=== PATIENT | female | born 1995 | race Caucasian/White ===

== ENCOUNTER 2024-03-26 10:50 | Observation (INO) | payer OTHER, SELFPAY ==
[2024-03-26] VITALS (12 sets, daily range): BP systolic 111–148; BP diastolic 60–97; PULSE 115–137; RESP 14–25; TEMP 36.5–37.5; O2SAT 97–100; BMI 38.0; BMI 41.5
--- NOTE | ~2024-03-26 | XR_ITS ---
EXAMINATION: XR chest 2V DATE: 03/26/2024 12:58 INDICATION: Cough and tachycardia during second trimester TECHNIQUE: PA and lateral views of the chest were obtained. COMPARISON: None FINDINGS: Consolidation at the anterior segment of the left upper lobe consistent with pneumonia. Additional mo re subtle opacities in the bilateral lower lobes. No pleural effusion or pneumothorax. The cardiomedi astinal silhouette is normal. Mild lower thoracic levocurvature with minimal spondylosis. IMPRESSION: 1. Left upper lobe pneumonia with possible additional early pneumonia in the bilateral lower lobes. Reviewed, dictated and finalized at location A. NCER SCALE IMPRESSION: 1. Left upper lobe pneumonia with possible additional early pneumonia in the bi lateral lower lobes.
--- NOTE | ~2024-03-26 | US_ITS ---
EXAMINATION: US venous doppler [facility] DATE: 03/26/2024 12:55 INDICATION: Transient left lower limb pain and swelling TECHNIQUE: Grayscale ultrasound images without and with compression and Doppler ultrasound images of the left lower extremity veins were obtained. COMPARISON: None. FINDINGS: The visualized portions of left common femoral vein, profunda (deep) femoral vein, femoral vein, popl iteal vein, peroneal veins, posterior tibial veins, gastrocnemius vein and greater saphenous vein out flow are patent. IMPRESSION: 1. No deep venous thrombosis in the left lower limb. Reviewed, dictated and finalized at location A. NTIFIC ADVISOR
--- NOTE | 2024-03-26 10:57 | ECG_ITS ---
Test Date: 2024-03-26 11:06:29 Measurements Intervals [place] Rate: 124 P: 31 MT: 137 QRS: 18 QRSD: 75 T: 14 QT: 282 QTc: 406 Interpretive Statements SINUS TACHYCARDIA EARLY PRECORDIAL R/S TRANSITION BORDERLINE T WAVE ABNORMALITY- INFERIOR LEADS ABNORMAL ECG No previous ECG available for comparison Electronically Signed On 03-27-2024 10:07:04 AIR TRAFF[employer] SYSTEMS TECHNICIAN by Kit Suárez D.O.
--- NOTE | 2024-03-26 11:32 | ED_ITS ---
HPI - Arrhythmia/Palpitations General Chief Complaint: Arrhythmia/Palpitations Stated Complaint: 23 weeks preg w twins, cough, elevated HR Time Seen by Provider: 03/26/24 11:08 History of Present Illness HPI narrative: 28-year-old female at 23 weeks gestation with twins presenting with cough and tachycardia. States that she developed cold-like symptoms about a day ago. She has been taking Mucinex to help break up her cough. States that she has had mild exertional dyspnea since getting and this is unchanged. She denies any chest pain. States that she has had some transient lower extremity swelling, worse on the left. States that she notices it at night after working all day. The swelling goes down after she rests. She noticed her heart rate was around 140 today on her watch so she called her OB who told her to come in for evaluation. No abdominal pain, vaginal bleeding or discharge, dysuria. Related Data Home Medications Medication Instructions Recorded Confirmed calcium carbonate 1,250 mg PO BID PRN Acid Reflux 03/26/24 03/26/24 vits 75-iron 28 mg-folic 1 pkg PO DAILY 03/26/24 03/26/24 acid 800 mcg-omega3 440 mg oral pack pseudoephedrine-guaifenesin ER 60 1 tablet PO BID 03/26/24 03/26/24 mg-600 mg tablet,extend release 12hr (Mucinex D) Allergies Allergy/AdvReac Type Severity Reaction Status Date / Time No Known Allergies Allergy Verified 03/26/24 10:51 Review of Systems Review of Systems: All systems reviewed & are unremarkable except as noted in HPI and below PMFSH Past Medical History Medical History Tachycardia Surgical History Surgical History History of hip surgery right hip surgery for labral tear History of placement of ear tubes History of tonsillectomy Family History Family History Other Family history non-contributory Social History Social History Social History: Surrogate medical decision maker: Justen Shanks ([phone]), spouse. Code status: Full code. Smoking status: Never smoker Alcohol intake: never Substance use: never Substance use type: does not use Do You Feel Safe in your Home?: Yes Lack of Transportation: No Lack of Food: Never True Current Housing: I Have Housing Concerned About Future Housing: No Difficulty Paying Gas/Electric Bills: No Difficulty Paying for Meds: No Currently Unemployed: No Education: Bachelor's Degree Difficulty w/ Childcare or Family Care: No Additional living arrangements comments: Lives with spouse in [place]. Additional occupation/education comments: [employer]. Spiritual care concerns: No Exam Narrative: GENERAL: Well-appearing, in no acute distress, pleasant cooperative HEAD: Normocephalic, atraumatic. EYES: PERRLA and EOMI. ENT: Mucous membranes moist. NECK: Supple. CHEST: Clear to auscultation. No respiratory distress. Intermittent cough HEART: Tachycardic, regular rhythm ABDOMEN: Soft, nontender, appropriately gravid EXTREMITIES: Normal range of motion. No edema. SKIN: Warm, dry, no rash. NEURO: No focal deficits. Alert and oriented x3. PSYCH: Normal mood and affect. Course Vital Signs Vital signs: Vital Signs Temperature 97.7 F 03/26/24 10:53 Pulse Rate 137 H 03/26/24 10:53 Respiratory Rate 14 03/26/24 10:53 Blood Pressure 137/90 03/26/24 10:53 Pulse Oximetry 99 03/26/24 10:53 Oxygen Delivery Room Air 03/26/24 10:53 Temperature 98.2 F 03/27/24 14:00 Pulse Rate 111 H 03/27/24 14:00 Respiratory Rate 17 03/27/24 14:00 Blood Pressure 125/71 03/27/24 14:00 Pulse Oximetry 96 03/27/24 14:00 Oxygen Delivery Room Air 03/27/24 09:03 Fraction of Inspired Oxygen 21 03/27/24 09:03 MDM - Arrhythmia/Palpitations MDM Narrative Medical decision making narrative: 28-year-old female presenting with cough, high heart rate. Patient is tachycardic in the 120s to 130s on arrival. Vitals are otherwise within normal limits. UA is contaminated. Negative for COVID. Chest x-ray with bilateral pneumonia. IV Rocephin and azithromycin given ordered. Patient is still a bit tachycardic, will give 1 more L of fluids. If she remains tachycardic, will admit her for IV hydration and antibiotics. Ultrasound of the left leg shows no DVT. Patient continues to be tachycardic up to the mid 120s despite 3 L of fluids. Feel she would benefit from admission for further IV hydration and IV a ntibiotics. Blood cultures have been added. Bedside ultrasound confirms positive cardiac activity in both fetuses with positive movement. I spoke with Dr. Ferrari who agrees with admission. Requests medicine consult for IV antibiotic and fluid management. Dr. Grajeda will see her tomorrow. Patient is agreeable this plan. Differential Diagnosis Differential diagnosis: Likely palpitations, sinus tachycardia and other (Pneumonia, UTI, dehydration, ) Medical Records Attestation: I reviewed the patient's medical records. Lab Data Attestation: I reviewed the patient's lab results. 03/26/24 11:43 03/27/24 06:23 Labs: Lab Results 03/26/24 03/26/24 Range/Units 11:43 13:46 WBC 6.9 (4.5-10.0) K/mm3 RBC 3.58 L (4.2-5.4) M/mm3 Hgb 10.9 L (12.0-15.0) g/dL Hct 32.3 L (37.0-47.0) % MCV 90.2 (80-100) fl MCH 30.4 (26-34) pg MCHC 33.7 (32-36) g/dl RDW 13.2 (11.5-14.5) % Plt Count 228 (150-375) k/mm3 MPV 10.3 (7.4-10.4) fl Immature Gran % (Auto) 1.2 H (0-0.5) % Neut % (Auto) 71.1 (45.5-73.1) % Lymph % (Auto) 17.7 L (18.3-44.2) % [place] % (Auto) 9.0 H (2.6-8.5) % Eos % (Auto) 0.7 (0-4.4) % Baso % (Auto) 0.3 (0.2-1.2) % Lymph # (Auto) 1.22 (0.9-3.2) K/mm3 [place] # (Auto) 0.6 (0.1-0.6) K/mm3 Eos # (Auto) 0.1 (0-0.3) K/mm3 Baso # (Auto) 0.0 (0.0-0.1) K/mm3 Abs Immat Gran (auto) 0.08 H (0.00-0.031) K/mm3 Absolute Neuts (auto) 4.9 (1.3-6.7) K/mm3 Absolute Nucleated RBC 0.000 (0.0-0.012) K/mm3 Nucleated RBC % 0.0 (0.0-0.2) % Sodium 135 L (137-145) mmol/L Potassium 4.0 (3.4-5.0) mmol/L Chloride 106 (98-107) mmol/L Carbon Dioxide 24 (22-30) mmol/L Anion Gap 5 (4-12) mmol/L BUN 3 L (7-17) mg/dL Creatinine 0.50 L (0.7-1.0) mg/dL Estim Creat Clear Calc 177 ml/min Estimated GFR > 60 (59 - ) Glucose 77 (65-110) mg/dL Lactic Acid 0.8 (0.7-2.0) mmol/L Calcium 9.0 (8.4-10.2) mg/dL Magnesium 1.9 (1.6-2.3) mg/dL Total Bilirubin 0.8 (0.2-1.3) mg/dL AST 33 (14-36) U/L ALT 29 (6-35) U/L Alkaline Phosphatase 107 (38-126) U/L Total Protein 7.0 (6.3-8.2) g/dL Albumin 3.7 (3.5-5.1) g/dL Urine Color Yellow (Yellow) Urine Appearance Clear (Clear) Urine pH 7.5 (5.0-9.0) Ur Specific [place] 1.014 (1.001-1.035) Urine Protein Trace (Negative) mg/dL Urine Glucose (UA) 1+ H (Negative) mg/dL Urine Ketones Trace H (Negative) mg/dL Ur Blood (Man) Negative (Negative) Urine Nitrate Negative (Negative) Urine Bilirubin Negative (Negative) Urine Urobilinogen 1.0 (<2.0) mg/dL Leukocyte Esterase Rfl Trace H (Negative) AYE/UL Urine RBC 0-2 (0-2) /hpf Urine WBC 6-10 H (0-3) /hpf Ur Squamous Epith Cells Occasional (Few) /hpf Urine Bacteria 1+ H /hpf Urine Casts 0-2 Influenza A (RT-PCR) Negative (Negative) Influenza B (RT-PCR) Negative (Negative) RSV (RT-PCR) Negative (Negative) SARS-CoV-2 RNA (RT-PCR) Negative (Negative) Imaging Data Radiologist's impression: ITS Impressions Venous Doppler Study 03/26/24 12:57 IMPRESSION: 1. No deep venous thrombosis in the left lower limb. Chest X-Ray 03/26/24 13:03 IMPRESSION: 1. Left upper lobe pneumonia with possible additional early pneumonia in the bilateral lower lobes. Critical Care Time Critical Care Time Critical Care Time: Yes Total Critical Care Time: 33 Discharge Plan Discharge Clinical Impression: Bilateral pneumonia, Second trimester Patient Disposition: Still a Patient Condition: Stable
[2024-03-26 11:50] LABS: Basophils Percent Auto 0.3 % (0.2-1.2); Eosinophils Absolute Auto 0.1 K/mm3 (0-0.3); Eosinophils Percent Auto 0.7 % (0-4.4); Hematocrit 32.3 % (37.0-47.0); Hemoglobin 10.9 g/dL (12.0-15.0); Immature Granulocyte Absolute 0.08 K/mm3 (0.00-0.031); Immature Granulocyte Percent A 1.2 % (0-0.5); Lymphocytes Absolute Auto 1.22 K/mm3 (0.9-3.2); Lymphocytes Percent Auto 17.7 % (18.3-44.2); Mean Corpuscular HGB Conc 33.7 g/dl (32-36); Mean Corpuscular Hemoglobin 30.4 pg (26-34); Mean Corpuscular Volume 90.2 fl (80-100); Mean Platelet Volume 10.3 fl (7.4-10.4); Monocytes Absolute Auto 0.6 K/mm3 (0.1-0.6); Neutrophils Absolute Auto 4.9 K/mm3 (1.3-6.7); Neutrophils Percent Auto 71.1 % (45.5-73.1); Platelet Count Result 228 k/mm3 (150-375); Red Blood Count 3.58 M/mm3 (4.2-5.4); Red Cell Distribution Width 13.2 % (11.5-14.5); White Blood Count 6.9 K/mm3 (4.5-10.0)
[2024-03-26 11:56] LABS: Add Urine Microscopic? YES; Appearance Urine Clear (Clear); Bacteria Urine 1+ /hpf; Bilirubin Urine Negative (Negative); Blood Urine Negative (Negative); Color Urine Yellow (Yellow); Glucose Urine UA 1+ mg/dL (Negative); Ketones Urine Trace mg/dL (Negative); Leukocyte Esterase Ur Trace LEU/UL (Negative); Nitrate Urine Negative (Negative); Non Pathogenic Casts 0-2; Protein Urine Trace mg/dL (Negative); RBC Urine 0-2 /hpf (0-2); Specific Grav Ur 1.014 (1.001-1.035); Squamous Epithelial Cell Urine Occasional /hpf (Few); pH Urine 7.5 (5.0-9.0)
[2024-03-26 11:59] LABS: Alanine Aminotransferase 29 U/L (6-35); Albumin Level 3.7 g/dL (3.5-5.1); Alkaline Phosphatase 107 U/L (38-126); Anion Gap 5 mmol/L (4-12); Aspartate Amino Transferase 33 U/L (14-36); Bilirubin,Total 0.8 mg/dL (0.2-1.3); Blood Urea Nitrogen 3 mg/dL (7-17); Carbon Dioxide 24 mmol/L (22-30); Chloride 106 mmol/L (98-107); Estimated CRCL calculation 177 ml/min; Estimated Glomerular Filt Rate > 60; Glucose 77 mg/dL (65-110); Magnesium 1.9 mg/dL (1.6-2.3); Sodium 135 mmol/L (137-145)
[2024-03-26] MEDS: SODIUM CHLORIDE 0.9% IV 1,000 ML 999 ML IV CONT ×3 (12:08→13:53)
[2024-03-26 12:26] LABS: Influenza A QL RT-PCR Negative (Negative); Influenza B QL RT-PCR Negative (Negative); RSV RNA, RT-PCR Negative (Negative); SARS-CoV-2 RNA PCR Negative (Negative)
--- NOTE | 2024-03-26 12:27 | PC.NURSE ---
This RN attempted to assess FHR with Doppler. Pt. is with twins. 2x FHR found in 2 separate locations. Doppler would not populate BPM. Pt. states at her OB visits they usually have difficulty with the Doppler and require an ultrasound. Pt. requesting twins be looked at via ultrasound by . Md Casper notified.
--- NOTE | 2024-03-26 12:54 | PC.NURSE ---
Pt. to x-ray. Will start 2nd bag of fluids when pt. returns.
[2024-03-26] MEDS: cefTRIAXone 2 GM/NS 100 ML 2 GM/100 ML BAG IVPB (13:53)
[2024-03-26 14:01] LABS: Lactic Acid Reflex 0.8 mmol/L (0.7-2.0)
--- NOTE | 2024-03-26 15:00 | PC.NURSE ---
MD Casper at bedside completing ultrasound
[2024-03-26] MEDS: AZITHROMYCIN 500 MG/NS 250 ML 500 MG/250 ML BAG 250 MG IVPB (15:06)
--- NOTE | 2024-03-26 16:15 | P.HP_ITS ---
H&P: HPI History of Present Illness Date/Time: 03/26/24 16:15 Chief Complaint: Fast heart rate. Meds Home Medications and Allergies Allergies Allergy/AdvReac Type Severity Reaction Status Date / Time No Known Allergies Allergy Verified 03/26/24 10:51 Vital Signs Vital Signs - 24 hr 03/26/24 10:53 03/26/24 11:15 03/26/24 12:31 Temperature 97.7 F Pulse Rate 137 H 124 H 115 H Respiratory Rate 14 16 24 H Blood Pressure 137/90 120/82 123/85 Pulse Oximetry 99 97 100 Oxygen Delivery Room Air 03/26/24 13:54 03/26/24 15:09 03/26/24 13:36 Temperature Pulse Rate 116 H 121 H 119 H Respiratory Rate 16 18 22 H Blood Pressure 116/85 132/90 116/85 Pulse Oximetry 100 100 100 Oxygen Delivery 03/26/24 15:00 03/26/24 15:42 03/26/24 16:01 Temperature Pulse Rate 124 H 125 H 126 H Respiratory Rate 23 H 18 25 H Blood Pressure 148/97 H Pulse Oximetry 100 100 100 Oxygen Delivery H&P: Results Labs Labs: Short CBC 03/26/24 Range/Units 11:43 WBC 6.9 (4.5-10.0) K/mm3 Hgb 10.9 L (12.0-15.0) g/dL Hct 32.3 L (37.0-47.0) % Plt Count 228 (150-375) k/mm3 BMP 03/26/24 11:43 Sodium 135 L Potassium 4.0 Chloride 106 Carbon Dioxide 24 BUN 3 L Creatinine 0.50 L Glucose 77 Calcium 9.0 Liver Function 03/26/24 Range/Units 11:43 Total Bilirubin 0.8 (0.2-1.3) mg/dL AST 33 (14-36) U/L ALT 29 (6-35) U/L Alkaline Phosphatase 107 (38-126) U/L Albumin 3.7 (3.5-5.1) g/dL Urine 03/26/24 Range/Units 11:43 Urine Color Yellow (Yellow) Urine Appearance Clear (Clear) Urine pH 7.5 (5.0-9.0) Ur Specific [place] 1.014 (1.001-1.035) Urine Protein Trace (Negative) mg/dL Urine Glucose (UA) 1+ H (Negative) mg/dL
--- NOTE | 2024-03-26 16:18 | P.CONIM_ITS ---
Assessment and Plan Assessment and plan (1) Community acquired pneumonia: Code(s): J18.9 - Pneumonia, unspecified organism Status: Acute (2) Tachycardia: Code(s): R00.0 - Tachycardia, unspecified Status: Acute (3) Second trimester : Code(s): Z34.92 - Encounter for supervision of normal , unspecified, second trimester Status: Acute Plan The patient presented to the emergency department for evaluation of cough, congestion, and tachycardia as detailed in HPI. Labs, imaging, EKG, and all reports were personally reviewed. Chest x-ray shows findings of pneumonia for which she has been started on azithromycin and ceftriaxone. Attempt sputum for culture. Check Legionella pneumococcal antigens as well as mycoplasma IgA. Tachycardia is likely related to underlying infection and ; she also has a history of tachycardia. She received 2 L normal saline in the ED and we will hold on further fluids at this time. Check TSH. Her home medications will be reviewed and resumed as appropriate. Findings and treatment plan were discussed with the patient. Questions were solicited and answered to satisfaction. The patient's medical management will be taken over by the hospitalist team in a.m. Thank you for allowing us to participate in this patient's care. Please do not hesitate to contact us with any questions. [facility] Date of Consult Consult date: 03/26/24 Requesting Physician: Sachin Ferrari MD Primary Care Provider: [employer] OPERATOR PHYSICIAN Consult Narrative Narrative: This is a very pleasant 28-year-old female, reportedly at 23 weeks gestation with twins, whom the hospitalist service has been consulted after she was admitted with a community-acquired pneumonia. The patient provides the following history. She endorses congestion and cough productive of clear phlegm for the l ast couple of days. She has also felt a bit short of breath however has noticed that somewhat during her and that is unchanged. She has occasional lower extremity edema and is noticed that the left leg seems to swell a bit more than the right, but the swelling typically goes down overnight. Today her smart watch alerted that her pulse was 140, she called her OB and she was referred to the emergency department. With further questioning she does have a history of sinus tachycardia and was on atenolol for quite some time however has been off of that for years. Her heart rate has not been this high, however. She denies fever, chills, sweats, sinus congestion, sore throat, pleuritic pain, chest pain, calf pain, nausea, vomiting, diarrhea, and dysuria. In the ED: She was afebrile on arrival with stable blood pressures. Pulse was 137 on arrival and has been consistently in the low 120s. SpO2 is in the upper 90s to 100% on room air. Labs were significant for WBC count 6.9, hemoglobin 10.9, sodium 135, BUN 3, creatinine 0.50, lactic acid 0.8. She tested negative for influenza, RSV, and COVID. Chest x-ray showed left upper lobe pneumonia with possible additional early pneumonia in the bilateral lower lobes. Left lower extremity venous Doppler ultrasound was negative for DVT. She was given a dose of azithromycin and ceftriaxone and is being admitted in this setting. Review of Systems Review of Systems: 12 systems were reviewed and are negativ e except for as per HPI. [facility] Past Medical History Medical History (Updated 03/26/24 @ 20:06 by Allie Avila PA-C) Tachycardia Surgical History Surgical History (Updated 03/26/24 @ 20:02 by Allie Avila PA-C) History of hip surgery right hip surgery for labral tear History of placement of ear tubes History of tonsillectomy Family History Family History (Updated 03/26/24 @ 20:02 by Allie Avila PA-C) Other Family history non-contributory Social History Social History (Updated 03/26/24 @ 20:03 by Allie Avila PA-C) Social History: Surrogate medical decision maker: Justen Shanks ([phone]), spouse. Code status: Full code. Smoking status: Never smoker Alcohol intake: never Substance use: never Substance use type: does not use Do You Feel Safe in your Home?: Yes Lack of Transportation: No Lack of Food: Never True Current Housing: I Have Housing Concerned About Future Housing: No Difficulty Paying Gas/Electric Bills: No Difficulty Paying for Meds: No Currently Unemployed: No Education: Bachelor's Degree Difficulty w/ Childcare or Family Care: No Additional living arrangements comments: Lives with spouse in [place]. Additional occupation/education comments: [employer]. Spiritual care concerns: No Meds Home Medications and Allergies Home Medications Medication Instructions Recorded Confirmed Type calcium carbonate 1,250 mg PO BID PRN Acid Reflux 03/26/24 03/26/24 History vits 75-iron 28 mg-folic 1 pkg PO DAILY 03/26/24 03/26/24 History acid 800 mcg-omega3 440 mg oral pack pseudoephedrine-guaifenesin ER 60 1 tablet PO BID 03/26/24 03/26/24 History mg-600 mg tablet,extend release 12hr (Mucinex D) Allergies Allergy/AdvReac Type Severity Reaction Status Date / Time No Known Allergies Allergy Verified 03/26/24 10:51 Vital Signs Vital Signs - 24 hr 03/26/24 10:53 03/26/24 11:15 03/26/24 12:31 Temperature 97.7 F Pulse Rate 137 H 124 H 115 H Respiratory Rate 14 16 24 H Blood Pressure 137/90 120/82 123/85 Pulse Oximetry 99 97 100 Oxygen Delivery Room Air 03/26/24 13:54 03/26/24 15:09 03/26/24 13:36 Temperature Pulse Rate 116 H 121 H 119 H Respiratory Rate 16 18 22 H Blood Pressure 116/85 132/90 116/85 Pulse Oximetry 100 100 100 Oxygen Delivery 03/26/24 15:00 03/26/24 15:42 03/26/24 16:01 Temperature Pulse Rate 124 H 125 H 126 H Respiratory Rate 23 H 18 25 H Blood Pressure 148/97 H Pulse Oximetry 100 100 100 Oxygen Delivery Exam Narrative: General: Well-developed, nontoxic-appearing female sitting up in bed in no acute distress. Weight: 113.2 kg. BMI: 41.5. HEENT: PERRL, EOMI. Sclera anicteric. Oral mucosa moist. Oropharynx clear. Neck: Supple. No lymphadenopathy. Respiratory: Respirations are nonlabored and she is speaking in full sentences. Bronchial breath sounds in the left mid upper lobe. Cardiovascular: Tachycardic with normal S1-S2. No significant murmur. Gastrointestinal: Abdomen is gravid, soft, and nontender with positive bowel sounds. Skin: Warm and dry. No rash or lesions on limited exam. Extremities: No cyanosis or clubbing. Trace velasquez ankle edema bilaterally. Radial and pedal pulses intact. Neurological: Alert. Cranial nerves 2-12 are grossly intact. No gross focal deficits to casual conversation. Psychiatric: Pleasant and cooperative with normal mood and affect. Judgment and insight intact. Results Labs 03/26/24 11:43 03/26/24 11:43 Labs: Short CBC 03/26/24 Range/Units 11:43 WBC 6.9 (4.5-10.0) K/mm3 Hgb 10.9 L (12.0-15.0) g/dL Hct 32.3 L (37.0-47.0) % Plt Count 228 (150-375) k/mm3 BMP 03/26/24 11:43 Sodium 135 L Potassium 4.0 Chloride 106 Carbon Dioxide 24 BUN 3 L Creatinine 0.50 L Glucose 77 Calcium 9.0 Liver Function 03/26/24 Range/Units 11:43 Total Bilirubin 0.8 (0.2-1.3) mg/dL AST 33 (14-36) U/L ALT 29 (6-35) U/L Alkaline Phosphatase 107 (38-126) U/L Albumin 3.7 (3.5-5.1) g/dL Urine 03/26/24 Range/Units 11:43 Urine Color Yellow (Yellow) Urine Appearance Clear (Clear) Urine pH 7.5 (5.0-9.0) Ur Specific [place] 1.014 (1.001-1.035) Urine Protein Trace (Negative) mg/dL Urine Glucose (UA) 1+ H (Negative) mg/dL Impressions Venous Doppler Study 03/26/24 12:57 IMPRESSION: 1. No deep venous thrombosis in the left lower limb. Chest X-Ray 03/26/24 13:03 IMPRESSION: 1. Left upper lobe pneumonia with possible additional early pneumonia in the b ilateral lower lobes. Quality VTE Prophylaxis VTE prophylaxis: mechanical ordered Hospitalist [facility] Advance Care Plan I have confirmed that the patient's Advanced Care Plan is present, code status is documented, or surrogate decision maker is listed in patient medical record.: Yes Medication Reconciliation I have utilized all available resources to obtain, update and review the patients current medications (includes all prescriptions, OTC, herbals, cannabis, and nutritional supplements).: Yes
[2024-03-26 22:27] LABS: MRSA (PCR) NOT DETECTED (NOT DETECTE)
[2024-03-27 00:03] VITALS: PULSE 107
[2024-03-27 04:00] VITALS: PULSE 103
[2024-03-27 05:48] VITALS: BP 133/76; PULSE 105; RESP 14; TEMP 36.9; O2SAT 98
[2024-03-27 06:48] LABS: Anion Gap 6 mmol/L (4-12); Blood Urea Nitrogen 2 mg/dL (7-17); Calcium 8.5 mg/dL (8.4-10.2); Carbon Dioxide 20 mmol/L (22-30); Chloride 109 mmol/L (98-107); Estimated CRCL calculation 216 ml/min; Estimated Glomerular Filt Rate > 60; Glucose 91 mg/dL (65-110); Magnesium 1.7 mg/dL (1.6-2.3); Potassium 3.5 mmol/L (3.4-5.0); Sodium 135 mmol/L (137-145)
[2024-03-27 07:16] LABS: Thyroid Stimulating Hormone Reflex 0.788 uIU/mL (0.465-4.68)
[2024-03-27 08:00] VITALS: PULSE 105; PULSE 111; RESP 14; O2SAT 98
[2024-03-27 09:03] VITALS: O2SAT 98
[2024-03-27] MEDS: AZITHROMYCIN 250 MG TABLET PO (09:39)
--- NOTE | 2024-03-27 10:18 | PC.NURSE ---
1010 - This RN at bedside to dopple heart tones. Baby A FHTs doppled at 155. Baby B FHTs doppled at 145.
--- NOTE | 2024-03-27 10:34 | P.PNIM_ITS ---
Progress Note: A&P Assessment and Plan (1) Community acquired pneumonia: Code(s): J18.9 - Pneumonia, unspecified organism Status: Acute (2) Tachycardia: Code(s): R00.0 - Tachycardia, unspecified Status: Acute (3) Second trimester : Code(s): Z34.92 - Encounter for supervision of normal , unspecified, second trimester Status: Acute Plan The patient presented to the emergency department for evaluation of cough, congestion, and tachycardia as detailed in HPI. Labs, imaging, EKG, and all reports were personally reviewed. Chest x-ray shows findings of pneumonia for which she has been started on azithromycin and ceftriaxone. Attempt sputum for culture. Check Legionella pneumococcal antigens as well as mycoplasma IgA. Tachycardia is likely related to underlying infection and ; she also has a history of tachycardia. She received 2 L normal saline in the ED and we will hold on further fluids at this time. Check TSH. Her home medications will be reviewed and resumed as appropriate. Findings and treatment plan were discussed with the patient. Questions were solicited and answered to satisfaction. The patient's medical management will be taken over by the hospitalist team in a.m. Thank you for allowing us to participate in this patient's care. Please do not hesitate to contact us with any questions. 03/27: # PNA Community-acquired pneumonia Amox clavulanic acid for 7 days Reviewed vitals and labs Encourage oral intake Return to ED in the event of constitutional symptoms #Tachycardia Possibly secondary to TSH is normal Need cardiac evaluation possibly EP Need psychiatric evaluation to rule out anxiety Subjective Date/time seen: 03/27/24 10:34 Interval history: Patient was evaluated at bedside. Patient reports of having PMHx of tachycardia for which she seen the field examiner and and no official diagnosis was made or given pill in the pocket. Patient denies any sudden in the family. Patient also denies any sudden loss of consciousness during her physical activity. In regards to pneumonia patient can take amoxicillin for 7 days and return to ED if she experience any cough congestion fever, chills. 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 Review of Systems Review of Systems: 12 systems were reviewed and are negativ e except for as per HPI. Exam Narrative: General: Well-developed, nontoxic-appearing female sitting up in bed in no acute distress. Weight: 113.2 kg. BMI: 41.5. HEENT: PERRL, EOMI. Sclera anicteric. Oral mucosa moist. Oropharynx clear. Neck: Supple. No lymphadenopathy. Respiratory: Respirations are nonlabored and she is speaking in full sentences. Bronchial breath sounds in the left mid upper lobe. Cardiovascular: Tachycardic with normal S1-S2. No significant murmur. Gastrointestinal: Abdomen is gravid, soft, and nontender with positive bowel sounds. Skin: Warm and dry. No rash or lesions on limited exam. Extremities: No cyanosis or clubbing. Trace velasquez ankle edema bilaterally. Radial and pedal pulses intact. Neurological: Alert. Cranial nerves 2-12 are grossly intact. No gross focal deficits to casual conversation. Psychiatric: Pleasant and cooperative with normal mood and affect. Judgment and insight intact. Objective Data Vital Signs Vital Signs: Vital Signs - 24 hr 03/26/24 10:53 03/26/24 11:15 03/26/24 12:31 Temperature 97.7 F Pulse Rate 137 H 124 H 115 H Respiratory Rate 14 16 24 H Blood Pressure 137/90 120/82 123/85 Pulse Oximetry 99 97 100 Oxygen Delivery Room Air Fraction of Inspired Oxygen 03/26/24 13:54 03/26/24 15:09 03/26/24 13:36 Temperature Pulse Rate 116 H 121 H 119 H Respiratory Rate 16 18 22 H Blood Pressure 116/85 132/90 116/85 Pulse Oximetry 100 100 100 Oxygen Delivery Fraction of Inspired Oxygen 03/26/24 15:00 03/26/24 15:42 03/26/24 16:01 Temperature Pulse Rate 124 H 125 H 126 H Respiratory Rate 23 H 18 25 H Blood Pressure 148/97 H Pulse Oximetry 100 100 100 Oxygen Delivery Fraction of Inspired Oxygen 03/26/24 17:23 03/26/24 17:49 03/26/24 21:54 Temperature 99.5 F 99.5 F Pulse Rate 122 H 122 H Respiratory Rate 20 20 Blood Pressure 117/69 111/60 Pulse Oximetry 99 98 Oxygen Delivery Room Air Fraction of Inspired Oxygen 03/26/24 20:00 03/26/24 20:01 03/27/24 00:03 Temperature Pulse Rate 117 H 107 H Respiratory Rate Blood Pressure Pulse Oximetry Oxygen Delivery Room Air Fraction of Inspired Oxygen 03/27/24 04:00 03/27/24 05:48 03/27/24 09:03 Temperature 98.5 F Pulse Rate 103 H 105 H Respiratory Rate 14 Blood Pressure 133/76 Pulse Oximetry 98 98 Oxygen Delivery Room Air Fraction of Inspired Oxygen 21 Intake/Output Intake/Output: Intake & Output 03/24/24 03/25/24 03/26/24 03/27/24 23:59 23:59 23:59 23:59 Intake Total 3850 1290 Output Total 100 Balance 3750 1290 Meds/Results Medications: Active Medications Generic Name Dose Route Start Last Admin Trade Name Freq PRN Reason Stop Dose Admin Albuterol 2 puff 03/26/24 20:07 Albuterol Sulfate (*Sp) Aerosol 1 Puff INHALATION QIDRT PRN Shortness Of Breath Azithromycin 250 mg 03/27/24 09:00 03/27/24 09:39 Azithromycin 250 Mg Tablet PO 03/30/24 09:01 250 mg DAILY OLE Administration Calcium Carbonate 500 mg 03/26/24 20:11 Calcium Carbonate (Tums) 500 Mg (200 Mg Elemental) PO BID PRN Acid Reflux Ceftriaxone Sodium 1 gm in 50 mls @ 100 mls/hr 03/27/24 14:00 Rocephin 1 Gm/Ns 50 Ml IVPB Q24H [facility] Vit/Calcium/Iron/Folic Ac 1 tab 03/27/24 09:00 Multivit/Min/Pren/Fol Ac/Iron Tablet PO DAILY [facility] Radiology Results: ITS Impressions Venous Doppler Study 03/26/24 12:57 IMPRESSION: 1. No deep venous thrombosis in the left lower limb. Chest X-Ray 03/26/24 13:03 IMPRESSION: 1. Left upper lobe pneumonia with possible additional early pneumonia in the bilateral lower lobes. Labs Labs: Laboratory Results - last 24 hr 03/26/24 03/26/24 03/26/24 11:43 13:46 21:08 WBC 6.9 RBC 3.58 L Hgb 10.9 L Hct 32.3 L MCV 90.2 MCH 30.4 MCHC 33.7 RDW 13.2 Plt Count 228 MPV 10.3 Immature Gran % (Auto) 1.2 H Neut % (Auto) 71.1 Lymph % (Auto) 17.7 L [place] % (Auto) 9.0 H Eos % (Auto) 0.7 Baso % (Auto) 0.3 Lymph # (Auto) 1.22 [place] # (Auto) 0.6 Eos # (Auto) 0.1 Baso # (Auto) 0.0 Abs Immat Gran (auto) 0.08 H Absolute Neuts (auto) 4.9 Absolute Nucleated RBC 0.000 Nucleated RBC % 0.0 Sodium 135 L Potassium 4.0 Chloride 106 Carbon Dioxide 24 Anion Gap 5 BUN 3 L Creatinine 0.50 L Estim Creat Clear Calc 177 Estimated GFR > 60 Glucose 77 Lactic Acid 0.8 Calcium 9.0 Magnesium 1.9 Total Bilirubin 0.8 AST 33 ALT 29 Alkaline Phosphatase 107 Total Protein 7.0 Albumin 3.7 TSH (Reflex) Urine Color Yellow Urine Appearance Clear Urine pH 7.5 Ur Specific [place] 1.014 Urine Protein Trace Urine Glucose (UA) 1+ H Urine Ketones Trace H Ur Blood (Man) Negative Urine Nitrate Negative Urine Bilirubin Negative Urine Urobilinogen 1.0 Leukocyte Esterase Rfl Trace H Urine RBC 0-2 Urine WBC 6-10 H Ur Squamous Epith Cells Occasional Urine Bacteria 1+ H Urine Casts 0-2 Nasal MRSA (PCR) Not detected Influenza A (RT-PCR) Negative Influenza B (RT-PCR) Negative RSV (RT-PCR) Negative SARS-CoV-2 RNA (RT-PCR) Negative 03/27/24 06:23 WBC RBC Hgb Hct MCV MCH MCHC RDW Plt Count MPV Immature Gran % (Auto) Neut % (Auto) Lymph % (Auto) [place] % (Auto) Eos % (Auto) Baso % (Auto) Lymph # (Auto) [place] # (Auto) Eos # (Auto) Baso # (Auto) Abs Immat Gran (auto) Absolute Neuts (auto) Absolute Nucleated RBC Nucleated RBC % Sodium 135 L Potassium 3.5 Chloride 109 H Carbon Dioxide 20 L Anion Gap 6 BUN 2 L Creatinine 0.40 L Estim Creat Clear Calc 216 Estimated GFR > 60 Glucose 91 Lactic Acid Calcium 8.5 Magnesium 1.7 Total Bilirubin AST ALT Alkaline Phosphatase Total Protein Albumin TSH (Reflex) 0.788 Urine Color Urine Appearance Urine pH Ur Specific [place] Urine Protein Urine Glucose (UA) Urine Ketones Ur Blood (Man) Urine Nitrate Urine Bilirubin Urine Urobilinogen Leukocyte Esterase Rfl Urine RBC Urine WBC Ur Squamous Epith Cells Urine Bacteria Urine Casts Nasal MRSA (PCR) Influenza A (RT-PCR) Influenza B (RT-PCR) RSV (RT-PCR) SARS-CoV-2 RNA (RT-PCR) Quality VTE Prophylaxis VTE prophylaxis: mechanical ordered Hospitalist MIPS Advance Care Plan I have confirmed that the patient's Advanced Care Plan is present, code status is documented, or surrogate decision maker is listed in patient medical record.: Yes Medication Reconciliation I have utilized all available resources to obtain, update and review the patients current medications (includes all prescriptions, OTC, herbals, sushila abis, and nutritional supplements).: Yes
--- NOTE | 2024-03-27 11:15 | PM.IMHP ---
H&P: HPI History of Present Illness Date/Time: 03/27/24 08:15 Chief Complaint: palpitations, dyspnea, cough Narrative: Patient is a 28 year old female at 23w6d with di di twins who presented 03/26 evening for tachycardia, palpitations and barky cough. She reports symptoms for a few days, then noticed her heart rate in the 140s according to her smart watch. She denies congestion or productive cough as well as fevers and chills. Her has been uncomplicated aside from her twin gestation. She denies known sick contacts. In the ER, her pulse was confirmed in the 140s, improved to 120s with 3L IV fluids. CXR demonstrated a left upper lung pneumonia and possible developing pneumonia in 2 other lobes. She was started on IV antibiotics and admitted to the floor. Did not require O2 supplementation. Pelvic US demonstrated good FHR x2 and good movement. This morning she reports good movment. No contractions or bleeding. Palpitations have improved. She reports persistent barky cough. No side effects from antibiotics. Overall feeling well. Review of Systems Review of Systems: All systems reviewed & are unremarkable except as noted in HPI and below PMFSH Past Medical History Medical History Tachycardia Surgical History Surgical History History of hip surgery right hip surgery for labral tear History of placement of ear tubes History of tonsillectomy Family History Family History Other Family history non-contributory Social History Social History Social History: Surrogate medical decision maker: Justen Shanks ([phone]), spouse. Code status: Full code. Smoking status: Never smoker Alcohol intake: never Substance use: never Substance use type: does not use Do You Feel Safe in your Home?: Yes Lack of Transportation: No Lack of Food: Never True Current Housing: I Have Housing Concerned About Future Housing: No Difficulty Paying Gas/Electric Bills: No Difficulty Paying for Meds: No Currently Unemployed: No Education: Bachelor's Degree Difficulty w/ Childcare or Family Care: No Additional living arrangements comments: Lives with spouse in [place]. Additional occupation/education comments: [employer] [place], [place] [employer]. Spiritual care concerns: No Meds Home Medications and Allergies Home Medications Medication Instructions Recorded Confirmed Type calcium carbonate 1,250 mg PO BID PRN Acid Reflux 03/26/24 03/26/24 History vits 75-iron 28 mg-folic 1 pkg PO DAILY 03/26/24 03/26/24 History acid 800 mcg-omega3 440 mg oral pack pseudoephedrine-guaifenesin ER 60 1 tablet PO BID 03/26/24 03/26/24 History mg-600 mg tablet,extend release 12hr (Mucinex D) Allergies Allergy/AdvReac Type Severity Reaction Status Date / Time No Known Allergies Allergy Verified 03/26/24 10:51 Vital Signs Vital Signs - 24 hr 03/26/24 12:31 03/26/24 13:54 03/26/24 15:09 Temperature Pulse Rate 115 H 116 H 121 H Respiratory Rate 24 H 16 18 Blood Pressure 123/85 116/85 132/90 Pulse Oximetry 100 100 100 Oxygen Delivery Fraction of Inspired Oxygen 03/26/24 13:36 03/26/24 15:00 03/26/24 15:42 Temperature Pulse Rate 119 H 124 H 125 H Respiratory Rate 22 H 23 H 18 Blood Pressure 116/85 Pulse Oximetry 100 100 100 Oxygen Delivery Fraction of Inspired Oxygen 03/26/24 16:01 03/26/24 17:23 03/26/24 17:49 Temperature 99.5 F Pulse Rate 126 H 122 H Respiratory Rate 25 H 20 Blood Pressure 148/97 H 117/69 Pulse Oximetry 100 99 Oxygen Delivery Room Air Fraction of Inspired Oxygen 03/26/24 21:54 03/26/24 20:00 03/26/24 20:01 Temperature 99.5 F Pulse Rate 122 H 117 H Respiratory Rate 20 Blood Pressure 111/60 Pulse Oximetry 98 Oxygen Delivery Room Air Fraction of Inspired Oxygen 03/27/24 00:03 03/27/24 04:00 03/27/24 05:48 Temperature 98.5 F Pulse Rate 107 H 103 H 105 H Respiratory Rate 14 Blood Pressure 133/76 Pulse Oximetry 98 Oxygen Delivery Fraction of Inspired Oxygen 03/27/24 09:03 Temperature Pulse Rate Respiratory Rate Blood Pressure Pulse Oximetry 98 Oxygen Delivery Room Air Fraction of Inspired Oxygen 21 Exam Const: General: comfortable and no acute distress HENMT: Mouth: Yes moist mucous membranes Resp: Effort & Inspection: normal respiratory effort Cardio: Rate: regular rate Other: mild tachycardia, appropriate for Skin: General skin exam: normal color Extrem: General: normal to inspection Psych: Mental Status: mental status grossly normal H&P: Results Labs Labs: Short CBC 03/26/24 Range/Units 11:43 WBC 6.9 (4.5-10.0) K/mm3 Hgb 10.9 L (12.0-15.0) g/dL Hct 32.3 L (37.0-47.0) % Plt Count 228 (150-375) k/mm3 BMP 03/26/24 03/27/24 11:43 06:23 Sodium 135 L 135 L Potassium 4.0 3.5 Chloride 106 109 H Carbon Dioxide 24 20 L BUN 3 L 2 L Creatinine 0.50 L 0.40 L Glucose 77 91 Calcium 9.0 8.5 Liver Function 03/26/24 Range/Units 11:43 Total Bilirubin 0.8 (0.2-1.3) mg/dL AST 33 (14-36) U/L ALT 29 (6-35) U/L Alkaline Phosphatase 107 (38-126) U/L Albumin 3.7 (3.5-5.1) g/dL Urine 03/26/24 Range/Units 11:43 Urine Color Yellow (Yellow) Urine Appearance Clear (Clear) Urine pH 7.5 (5.0-9.0) Ur Specific [place] 1.014 (1.001-1.035) Urine Protein Trace (Negative) mg/dL Urine Glucose (UA) 1+ H (Negative) mg/dL Assessment and Plan Assessment and plan (1) Community acquired pneumonia: Code(s): J18.9 - Pneumonia, unspecified organism Status: Acute Assessment and Plan: - afebrile, VSS; tachycardia improved; discussed that up to 110s-120 is normal in especially with illness - labs wnl - CXR c/w pneumonia - hospitalist consulted for assistance in management; discussed with hospitalist today, stable from OB perspective for discharge today - has follow up appointment in office tomorrow for US and OB (2) Dichorionic diamniotic twin : Code(s): O30.049 - Twin , dichorionic/diamniotic, unspecified trimester Status: Acute Assessment and Plan: - FHR and movement normal x2 on admission - good movement - will doppler prior to discharge - f/u in office tomorrow
[2024-03-27] MEDS: AMOXICILLIN/CLAVULANATE K 875-125 MG TAB 1 TABLET PO (12:00)
[2024-03-27 14:00] VITALS: BP 125/71; PULSE 111; RESP 17; TEMP 36.8; O2SAT 96
--- NOTE | 2024-03-28 18:42 | P.DS_ITS ---
DS: Admitting Diagnosis Discharge Date 03/27/24 Admitting Diagnosis palpitations, tachycardia, dyspnea DS: Discharge Diagnosis Discharge Diagnosis (1) Dichorionic diamniotic twin : Code(s): O30.049 - Twin , dichorionic/diamniotic, unspecified trimester Status: Acute (2) Community acquired pneumonia: Code(s): J18.9 - Pneumonia, unspecified organism Status: Acute DS: Summary Hospital Course Hospital Course: Patient is a 28 year old female at 23w5d with di di twin gestation who presented for tachycardia and palpitations. She noticed HR in the 140s throughout the day, along with palpitations and dyspnea. She presented to the ED and was diagnosed with RORO pneumonia, and started on IV antibiotics and fluids. She remained afebrile throughout her hospitalization. Overnight, her tachycardia improved and she reported resolution of palpitations. FHR and movement were reassuring x2. On HD#1, patient was stable for discharge home with PO antibiotic course. Time Spent with Patient Time attestation: Total time spent providing and/or coordinating discharge services: Exam Const: General: comfortable and no acute distress HENMT: Mouth: Yes moist mucous membranes Resp: Effort & Inspection: normal respiratory effort Cardio: Rate: regular rate Other: mild tachycardia, appropriate for Skin: General skin exam: normal color Extrem: General: normal to inspection Psych: Mental Status: mental status grossly normal DS: Data Data Completed and Pending Labs on day of discharge: Preliminary micro results at discharge 03/26/24 13:46 Blood Culture - Preliminary Blood 03/26/24 13:46 Blood Culture - Preliminary Blood Discharge Plan Discharge Attending physician on discharge: Bill Grajeda Consulting providers: Evelio Reynaga; Allie Avila Rafe M.; Yashira Austin Prashanth Discharging Clinician: Bill Grajeda Patient Disposition: Home, Self-Care Activity: may shower and as tolerated Diet: as tolerated Discharge Instructions: Follow up with OB as scheduled. Take remaining doses of antibiotics. Call 911 or go to ER with any increasing Shortness of Breath, Chest Pain, over fevers over 101. Patient Instructions: Antibiotic Form, Viral Pneumonia (DC) Stand Alone Forms: General Discharge Information Follow-up/Referrals: Bill Grajeda MD [Physician] - Keep Reg. Scheduled Appt. Discharge Medications: New amoxicillin-pot clavulanate 875-125 mg Tablet 1 tablet PO Q12H 5 Days Qty: 10 0RF Continued [id number] fum-folic [id number] [id number] mg-mcg-mg Combo Pack 1 pkg PO DAILY pseudoephedrine-guaifenesin [Mucinex D] 60-600 mg Tablet Extended Release 12 Hr 1 tablet PO BID calcium carbonate 500 mg calcium (1,250 mg) Tablet,Chewable 1,250 mg PO BID PRN (Reason: Acid Reflux) Date of admission: 03/26/24 15:10 Primary Care Provider: PHYSICIAN,CHIEF LIBRARIAN CIRCULATION DEPARTMENT Admitting Provider: Sachin Ferrari Attending physician on admission: Bill Grajeda Condition: Stable
[2024-03-30 17:24] LABS: Pneumococcal Antigen Urine NOT DETECTED
== END 2024-03-27 16:05 | disposition home or self-care (01) ==
LOC: ANHED 11:21 → ANH3MEDSUR 16:41
PROVIDERS: Physician Assistant; Admitting Provider Obstetrics & Gynecology; Emergency Provider Emergency Medicine; Visit Provider Obstetrics & Gynecology
DX: O99.512 Diseases of the respiratory system complicating pregnancy, second trimester (principal); J18.9 Pneumonia, unspecified organism; O30.042 Twin pregnancy, dichorionic/diamniotic, second trimester; O99.891 Other specified diseases and conditions complicating pregnancy; R00.0 Tachycardia, unspecified; M79.89 Other specified soft tissue disorders; Z3A.23 23 weeks gestation of pregnancy; Z20.822 Contact with and (suspected) exposure to COVID-19
CPT/HCPCS: 36415; 71046; 80048; 80053; 81001; 83605; 83735; 84443; 85025; 86738; 87040; 87086; 87449; 87637; 87641; 87899; 93005; 93971; 96361; 96365; 96367; 99285; A9270; G0378; J0456; J0696; J7030

== ENCOUNTER 2024-07-06 10:27 | Outpatient (CLI) | payer OTHER, SELFPAY ==
[2024-07-06 11:46] LABS: Hematocrit 33.8 % (37.0-47.0); Hemoglobin 10.4 g/dL (12.0-15.0); Mean Corpuscular HGB Conc 30.8 g/dl (32-36); Mean Corpuscular Hemoglobin 26.9 pg (26-34); Mean Corpuscular Volume 87.3 fl (80-100); Mean Platelet Volume 11.4 fl (7.4-10.4); Platelet Count Result 212 k/mm3 (150-375); Red Blood Count 3.87 M/mm3 (4.2-5.4); White Blood Count 5.8 K/mm3 (4.5-10.0)
--- OUTSIDE RECORDS SUMMARY | 2024-07-06 12:02 | XMS_ITS | Encounter Summary ---
Author Organization [facility] Address 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
--- OUTSIDE RECORDS SUMMARY | 2024-07-06 12:02 | XMS_ITS | Data Portability ---
Author Organization [facility] [place] Address [address] [place] [address] Care Team Providers Care Machine Strap Buckler Name Role Phone ALEX ESCOBAR Primary Care Provider [phone] Assessment No assessment recorded. Plan of Treatment Reminders Order Date Submit Date Provider Last Modified By Organization Details Last Modified Time Details Appointments SURG CSection 2024 07:30A Tamika DEL RIO MD Not available Not available Not available SURG POST OP 2024 11:15A Tamika DEL RIO MD Not available Not available Not available Lab None recorded. Referral None recorded. Procedures None recorded. Surgeries None recorded. Imaging non-stres s test 2024 025 romeo [email or web address] [place], [address], [place], [address], 07/05/2024 03:23:41 US, obstetric , biophysic al profile + non-stres s test 2024 025 [email or web address] [place], [address], [address], [place], [address], 07/04/2024 12:38:10 US, obstetric , biophysic al profile + non-stres s test 2024 025 JESSIE [place], [address], [place], [address], 07/04/2024 16:20:09 non-stres s test 2024 025 [email or web address] [address], [address], [place], [address], 06/28/2024 03:55:15 US, obstetric , biophysic al profile + non-stres s test 2024 025 [email or web address] [place], [address], [place], [address], 06/27/2024 23:00:35 US, obstetric , biophysic al profile + non-stres s test 2024 025 [email or web address] [place], [address], [place], [address], 06/27/2024 23:00:35 Medication Orders None recorded. Patient TargetsNo targets recorded. Patient InstructionsNo instructions recorded. Reason for Referral None Reported. Results Created Date Observation Date Name Description Value Unit Range Abnormal Flag Note LastModifiedBy Organization Detail LastModifiedTime 06/06/1906/06/2024 CULTU RE: URINE result report SEE RESULT S BELOW abnormal Test: Cultu re: Urine Speci men Sourc e: Urine - Clean Catch Speci men Type: Urine Speci men Date: 1654 Resul t Date: 325 Resul t Statu s: Final resul t Abnor mal: Yes Resul hectorg Lab: [facility] [address] [facility] [address] Tel: CULTU RE ----- ----- ----- --- Cultu re resul t (>=3 organ isms prese nt) indic ates possi ble conta minat ion. Repea t cultu re if sympt oms indic ate. 1,000 -5,00 0 CFU/m l Strep tococ cus agala ctiae (Grou p B) (Abno rmal) Strep tococ cus agala ctiae (Beta strep Group B Strep ) remai ns unive rsall y susce ptibl e to penic illin , cefaz joaquin and vanco mycin . If clind amyci n is being consi dered for intra partu m proph ylaxi s, pleas e conta ct the lab withi n 5 days. Not Available [facility] (Lab) [address], [place], [address], 06/08/2024 04:29:23 06/06/19 25 06/06/2024 US, obste tric, bioph ysica l profi le + non-s tress test No observ ation record ed. [email or web address] [place] [address], [place], [address], 06/06/2024 18:10:38 06/06/19 25 06/06/2024 US, obste tric, bioph ysica l profi le + non-s tress test No observ ation record ed. [email or web address] [place] [address], [place], [address], 06/06/2024 18:10:48 06/06/19 25 06/06/2024 US, obste tric, bioph ysica l profi le + non-s tress test No observ ation record ed. [email or web address] [address] [facility], [place], [address], 06/06/2024 22:25:12 06/06/19 25 06/06/2024 non-s tress test No observ ation record ed. [email or web address] [place] [address], [place], [address], 06/06/2024 17:49:03 06/13/19 25 06/13/2024 US, obste tric, bioph ysica l profi le + non-s tress test No observ ation record ed. [email or web address] [place] [address], [place], [address], 06/13/2024 17:37:00 06/13/19 25 06/13/2024 US, obste tric, bioph ysica l profi le + non-s tress test No observ ation record ed. [email or web address] [place] [address], [place], [address], 06/13/2024 17:37:10 06/13/19 25 06/13/2024 US, obste tric, bioph ysica l profi le + non-s tress test No observ ation record ed. [email or web address] [address], [place], [address], 06/16/2024 23:12:08 06/13/19 25 06/13/2024 non-s tress test No observ ation record ed. [email or web address] [place] [address], [place], [address], 06/13/2024 17:42:26 06/20/19 25 06/20/2024 US, obste tric, follo w-up No observ ation record ed. [email or web address] [place] [address], [place], [address], 06/20/2024 12:56:11 06/20/19 25 06/20/2024 US, obste tric, follo w-up No observ ation record ed. [email or web address] [place] [address], [place], [address], 06/20/2024 12:56:21 06/20/19 25 06/20/2024 US, obste tric, follo w-up No observ ation record ed. [email or web address] [address], [place], [address], 06/20/2024 12:48:38 06/20/19 25 06/20/2024 non-s tress test No observ ation record ed. [email or web address] [place] [address], [place], [address], 06/20/2024 16:05:08 06/20/1906/20/2024 non-s tress test No observ ation record ed. [email or web address] [place] [address], [place], [address], 06/20/2024 16:11:41 06/27/19 25 06/27/2024 US, obste tric, bioph ysica l profi le + non-s tress test No observ ation record ed. [email or web address] [place] [address], [place], [address], 06/27/2024 13:47:43 06/27/19 25 06/27/2024 US, obste tric, bioph ysica l profi le + non-s tress test No observ ation record ed. [email or web address] [place] [address], [place], [address], 06/27/2024 13:47:56 06/27/19 25 06/27/2024 US, obste tric, follo w-up No observ ation record ed. [email or web address] [address], [facility], [place], [address], 07/03/2024 10:15:34 06/27/19 25 06/27/2024 non-s tress test No observ ation record ed. [email or web address] [place] [address], [place], [address], 06/27/2024 15:16:59 07/05/1907/04/2024 US, obste tric, bioph ysica l profi le + non-s tress test No observ ation record ed. [email or web address] [place] [address], [place], [address], 07/04/2024 16:20:00 07/05/19 25 07/04/2024 US, obste tric, bioph ysica l profi le + non-s tress test No observ ation record ed. [email or web address] [place] [address], [place], [address], 07/04/2024 16:20:09 07/05/19 25 07/04/2024 US, obste tric, bioph ysica l profi le + non-s tress test No observ ation record ed. [address], [place], [address], 07/04/2024 13:44:21 07/05/19 25 07/04/2024 non-s tress test No observ ation record ed. [email or web address] [place] [address], [place], [address], 07/04/2024 11:44:50 Result Notes None recorded. Problems Name Problem SNOMED Code Status Onset Date Resolution Date Notes Provider Name and Address Organization Details Recorded Time 82988166 Active 2023 Va galindo, [facility] 4 12:10:13 Dichorion ic diamnioti c twin 775368836 Active serial growth US incomplet e anatomy x 2 - MFM referral faxed 03/28 [facility] for anatomy scheduled 04/27 09 us only Savannah galindo, [facility] 4 15:53:25 Anemia 276134368 Active JULIA DEL RIO MD [address], [place], [address], [place] [facility] 4 14:44:22 Twin 74192710 Active 2023 Ibis galindo [facility] 4 12:45:35 Body mass index 40+ - severely obese 577820612 Active testing 34wks Savannah galindo, [facility] 4 16:21:54 Body mass index 40+ - severely obese 982245378 Active testing 34wjose galindo, [facility] 4 16:21:54 Problem Notes None recorded. Procedures Surgical History Date Name Laterality Status Provider Name and Address Organization Details Recorded Time 05/03/19 22 Date of Last Pap Smear completed Va Yeager [facility] 09/01/2023 14:41:08 05/03/19 19 Hip arthro w/labral repair [facility] 02/08/[facility]24 12:47:04 05/03/19 13 extraction of wisdom tooth [facility] 02/08/2024 12:47:50 05/03/19 03 procedure on ear [facility] 02/08/2024 12:47:31 05/03/19 00 Tonsillectomy completed [facility] 02/08/2024 12:47:17 Imaging Results Imaging Date Name Status LastModified by Organiz ation Details LastModified Time 06/06/2024 US, obstetric, biophysical profile + non-stress test completed [address], [place], [address], 06/06/2024 18:10:38 06/06/2024 US, obstetric, biophysical profile + non-stress test completed [email or web address] [place] [address], [place], [address], 06/06/2024 18:10:48 06/06/2024 US, obstetric, biophysical profile + non-stress test completed [email or web address] [address], [place], [address], 06/06/2024 22:25:12 06/06/2024 non-stress test completed [email or web address] [place] [address], [place], [address], 06/06/2024 17:49:03 06/13/2024 US, obstetric, biophysical profile + non-stress test completed [email or web address] [place] [address], [place], [address], 06/13/2024 17:37:00 06/13/2024 US, obstetric, biophysical profile + non-stress test completed [email or web address] [place] [address], [place], [address], 06/13/2024 17:37:10 06/13/2024 US, obstetric, biophysical profile + non-stress test completed [email or web address] [address], [place], [address], 06/16/2024 23:12:08 06/13/2024 non-stress test completed [place] [address], [place], [address], 06/13/2024 17:42:26 06/20/2024 US, obstetric, follow-up completed [email or web address] [place] [address], [place], [address], 06/20/2024 12:56:11 06/20/2024 US, obstetric, follow-up completed [email or web address] [place] [address], [place], [address], 06/20/2024 12:56:21 06/20/2024 US, obstetric, follow-up completed [email or web address] [address], [place], [address], 06/20/2024 12:48:38 06/20/2024 non-stress test completed [email or web address] [place] [address], [place], [address], 06/20/2024 16:05:08 06/20/2024 non-stress test completed [email or web address] [place] [address], [place], [address], 06/20/2024 16:11:41 06/27/2024 US, obstetric, biophysical profile + non-stress test completed [email or web address] [place] [address], [place], [address], 06/27/2024 13:47:43 06/27/2024 US, obstetric, biophysical profile + non-stress test completed [email or web address] [place] [address], [place], [address], 06/27/2024 13:47:56 06/27/2024 US, obstetric, follow-up completed [email or web address] [address], [place], [address], 07/03/2024 10:15:34 06/27/2024 non-stress test completed [place] [address], [place], [address], 06/27/2024 15:16:59 07/04/2024 US, obstetric, biophysical profile + [facility]stress [email or web address] [address], [place], [address], 07/04/2024 16:20:00 07/04/2024 US, obstetric, biophysical profile + non-stress test completed [email or web address] [place] [address], [place], [address], 07/04/2024 16:20:09 07/04/2024 US, obstetric, biophysical profile + non-stress test completed [email or web address] [address], [place], [address], 07/04/2024 13:44:21 07/04/2024 non-stress test completed [email or web address] [place] [address], [place], [address], 07/04/2024 11:44:50 Procedure Notes None recorded. Medical Equipment None Reported. Allergies No known drug allergies Medications Name Sig Start Date Stop Date Status Note LastModified by Organization Details LastModified Time ondansetron 8 mg disintegrat ing tablet Place 1 tablet 4 times a day by transling ual route as needed. 05/10 completed Not Available Not Available Not Available amoxicillin 875 mg-potassiu m clavulanate 125 mg tablet 04/24 completed Not Available Not Available Not Available tranexamic acid 650 mg tablet 08/31 completed Not Available Not Available Not Available Gummies active Not Available Not Available Not Available Vitals Date Recorded Body height Body mass index (BMI) Body weight Systolic blood pressure Diastolic blood pressure Provider Name and Address Organization Details Last Updated DateTime 06/27/2024 162.56 cm 46.3 kg/m2 791688.9 399 g 136 mm[Hg] 88 mm[Hg] Nubia Langston [facility] 11:47:20 Date Recorded Body height Body mass index (BMI) Body weight Systolic blood pressure Diastolic blood pressure Provider Name and Address Organization Details Last Updated DateTime 07/04/2024 162.56 cm 46.5 kg/m2 760974.5 3 g 131 mm[Hg] 93 mm[Hg] Nubia Langston [facility] 11:32:41 Social History Question Answer Notes LastModified by Organizat ion Details LastModified Time Tobacco Smoking Status Unknown If Ever Smoked Ibis galindo [facility] 02/08/2024 12:46:41 What Is Your Level Of Alcohol Consumption? None [email or web address] Information not available 02/08/2024 If You Are , What Was Your Level Of Alcohol Consumption Prior To ? Moderate [email or web address] Information not available 02/08/2024 How Many Years Have You Consumed Alcohol? 5 Information not available 09/01/2023 Are You Blind Or Do You Have Difficulty Seeing? No Information not available 09/01/2023 What Is Your Level Of Caffeine Consumption? Moderate Information not available 09/01/2023 How Much Tobacco Do You Chew? None Information not available 09/01/2023 In The 14 Days Before Symptom Onset, Have You Had Close Contact With A Laboratory-confir med COVID-19 While That Case Was Ill? No Information not available 09/01/2023 In The 14 Days Before Symptom Onset, Have You Had Close Contact With A Person Who Is Under Investigation For COVID-19 While That Person Was Ill? No Information not available 09/01/2023 Have You Been To An Area Known To Be High Risk For COVID-19? No Information not available 09/01/2023 Are You Deaf Or Do You Have Serious Difficulty Hearing? No Information not available 09/01/2023 What Type Of Diet Are You Following? REGULAR Information not available 09/01/2023 What Is The Highest Grade Or Level Of School You Have Completed Or The Highest Degree You Have Received? 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 Yes Information not available 12/08/2023 Do You Use Protection During Sex? No Information not available 09/01/2023 Do You Use Your Seat Belt Or Car Seat Routinely? Yes Information not available 09/01/2023 Do You Have Smoke And Carbon Monoxide Detectors In Your Home? Yes Information not available 09/01/2023 How Much Tobacco Do You Smoke? No Information not available 09/01/2023 Do You Feel Stressed (tense, Restless, Nervous, Or Anxious, Or Unable To Sleep At Night)? [id number] Information not available 09/01/2023 Do You Use Any Illicit Or Recreational Drugs? No Information not available 09/01/2023 Do You Use Sunscreen Routinely? Yes Information not available 09/01/2023 Have You Used IV Drugs? No Information not available 09/01/2023 Sex: Unknown Functional Status Question Answer Note LastModified by Organizat ion Details LastModified Time Do you have difficulty walking or climbing stairs? No [email or web address] Information not available 02/08/2024 Are you able to walk? [email or web address] Information not available 09/01/2023 Are you able to care for yourself? Yes Information not available 02/08/2024 Do you have difficulty dressing or bathing? No [email or web address] Information not available 02/08/2024 What is your exercise level? Moderate Information not available 09/01/2023 Mental Status None recorded. Family History Relationship Description Onset Age of this Age Resolved Age Notes LastModified by Organization Details LastModified Time Mother Malignant tumor of breast [email or web address] Not available 2023 14:30:28 Medical History Condition Response Allergies (Food, seasonal, environmental ) N Other N Breast Cancer N Drug/Latex Allergies/Reactions N Blood Transfusion N Dermatologic Disorders N Lung Disease N Defects or Inherited Disease N Breast Problem N Gestational Diabetes N Hematologic disorders N Anesthesia Complications N History of STI N Deep Vein Thrombosis N Polycystic ovary syndrome N Anxiety Disorder N Autoimmune disease N Arthritis N Infertility N Polyps N Acid Reflux (GERD) N History of abnormal pap N Cancer N Stroke N Varicosities N Neurologic/Epilepsy N Endometriosis N High Cholesterol N Headaches N Fibromyalgia N Kidney Disease N Heart Problems N Kidney or Bladder Problems N Thyroid Problems N GI Problems N Eating Disorder N Anemia Y Art (IVF or FET) N Psychiatric Illness N Ovarian Cancer N Diabetes N Pulmonary (TB, Asthma) N Hepatitis/Liver Disease N No Past Medical History N Eczema N Urinary Tract Infection N Abuse/Domestic Violence N Asthma N Trauma/Violence N Depression/ depression N Heart Disease N Pre-Eclampsia N Hypertension N Osteoporosis N Thrombophilias N Gynecological History Statement/Question Response Date of Last Mammogram Date of LMP 10/12/2023 N Was last menstrual period normal Y STIs/STDs N Duration of Flow (days) 4 Current Control Method Frequency of Cycle (Q days) 28 Sexually Active? Y Date of DEXA bone scan Age of first menstrual cycle 14 Date of Last Pap Smear 05/03/2021 Sexual Problems? N Desired Control Method None LMP Definite N Obstetrics History GPAL:G 1 P 0 0 0 0 Type Value Living 0 Total 1 Past Encounters Encounter ID Performer Location Encounter Start Date Encounter Closed Date Diagnosis/Indication Diagnosis SNOMED-CT Code Diagnosis ICD10 Code Diagnosis Note [id number] JULIA DEL RIO MD [place] [address] [address] 09/01/2023 14:05:08 09/01/2023 15:23:42 Gynecologic examination 63100374 Z01.419 Well woman care- Cervical cancer screening: Pap smear not indicated (next 2024)- Breast cancer screening: mammogram not indicated; will begin at age 31 due to family hx- Colon cancer screening: does not qualify- STD testing: declined- hereditary cancer screening: does not qualify for testing Obesity 889963960 E66.9 - attempting weight loss through calorie restrictio n and exercise- recently had labs with PCP that were normal- has not met with [facility]- discussed macro tracking as well- info given for [facility] Family his tory of breast cancer 780858665 Z80.3 - mother with breast cancer at age 40, recurrence after stopping tamoxifen after 10 years- breast exam normal today- recommend yearly mammograms starting at age 31 due to family hx- no other pattern of familial cancer that would need familial testing; mother reportedly negative for genetic symptoms [facility] [address] [address] 12/08/2023 10:00:03 12/08/2023 10:30:07 JULIA DEL RIO MD [place] [address] [address] 12/08/2023 10:00:19 12/08/2023 11:35:36 Nausea and vomiting 33120589 R11.2 - will trial unisom and B6 as well as zofran Dichorioni c diamniotic twin 848475711 O30.049 +twin peak sign test positive 371400502 Z32.01 1. Exam today within normal limits.2. Ultrasound today confirms GA and viability. EDC . GC/Clamydi a testing done: will f/u as indicated. 4. ACOG guidelines and plan of care for reviewed with patient. All questions answered.5 . Return to office at 12 weeks for new OB visit6. Will need new OB labs at next visit.7. Genetic screening: desires. Anemia 254343377 D64.9 - hx of anemia, restart PO supplement ation [id number] [facility] [address],[place] [address] 01/05/2024 11:58:19 01/05/2024 12:49:11 screening 335472247 Z36.82 Z3A.12 [id number] JULIA DEL RIO MD [place] [address],[place] [address] 01/05/2024 11:58:42 01/05/2024 14:54:47 Routine care 571831979 Z34.90 Dichorioni c diamniotic twin 248772014 O30.049 +twin peak sign Gestation period, 12 weeks 56193809 Z3A.12 [id number] Sachin Ferrari MD [place] [address],[place] [address] 02/08/2024 12:17:08 02/08/2024 13:39:53 Dichorionic diamniotic twin 659098737 O30.049 [id number] [facility] [address],[place] [address] 02/29/2024 11:26:43 02/29/2024 13:30:07 screening for malformation 999799550 Z36.3 Z3A.20 [id number] JULIA DEL RIO MD [place] [address],[place] [address] 02/29/2024 11:27:53 03/01/2024 12:46:42 Body mass index 40+ - severely obese 418644683 Z68.41 Maternal o besity complicating , childbirth and the puerperium, antepartum 3065137750 07 O99.210 Dichorioni c diamniotic twin 387868105 O30.049 +twin peak signgrowth US q4 weeks Gestation period, 20 weeks 74005432 Z3A.20 - continue PNV [id number] [facility] [address],[place] [address] 03/28/2024 10:35:17 03/28/2024 11:53:17 screening 123860612 Z36.2 O30.042 Z3A.24 [id number] JULIA DEL RIO MD [place] [address],[place] [address] 03/28/2024 10:36:01 03/31/2024 08:19:37 Body mass index 40+ - severely obese 338893257 Z68.41 Dichorioni c diamniotic twin 871912940 O30.049 +twin peak signgrowth US q4 weeks Gestation period, 24 weeks 144720323 Z3A.24 [id number] JULIA DEL RIO MD [place] [address],[place] [address] 04/24/2024 15:02:35 04/24/2024 16:16:21 Dichorionic diamniotic twin 179589633 O30.049 +twin peak signgrowth US q4 weeks Gestation period, 27 weeks 30326780 Z3A.27 [id number] JLUIA DEL RIO MD [place] [address],[place] [address] 05/10/2024 16:36:14 05/10/2024 23:32:47 Maternal obesity complicating , childbirth and the puerperium, antepartum 0364995271 07 O99.210 - testing at 34 weeks Dichorioni c diamniotic twin 203536444 O30.049 - +twin peak sign in 1st trimester- growth US q4 weeks- desires PCS at 38 weeks Gestation period, 30 weeks 50818115 Z3A.30 - continue PNV [id number] Maribeth Gibson [place] [address],[place] [address] 05/24/2024 16:01:14 05/24/2024 17:00:04 Dichorionic diamniotic twin 770632817 O30.043 O99.213 Z3A.32 [id number] JULIA DEL RIO MD [place] [address],[place] [address] 05/24/2024 16:02:40 05/25/2024 05:00:12 Dichorionic diamniotic twin 399400094 O30.049 - +twin peak sign in 1st trimester- growth US q4 weeks- desires PCS at 38 weeks Gestation period, 32 weeks 9658169 Z3A.32 [id number] [facility] [address],[place] [address] 06/06/2024 16:03:43 06/06/2024 16:51:13 Dichorionic diamniotic twin 666870412 O30.043 O99.213 Z3A.34 [id number] DEANDRE Boyer [place] [address],[place] [address] 06/06/2024 16:05:05 06/06/2024 17:56:35 Maternal obesity complicating , childbirth and the puerperium, antepartum 3477305109 07 O99.210 - testing at 34 weeks [id number] JULIA DEL RIO MD [place] [address],[place] [address] 06/06/2024 16:05:47 06/06/2024 17:41:36 Dichorionic diamniotic twin 206901567 O30.049 - +twin peak sign in 1st trimester- growth US q4 weeks- desires PCS at 38 weeks Maternal o besity complicating , childbirth and the puerperium, antepartum 9371272562 07 O99.210 - testing at 34 weeks Gestation period, 34 weeks 45212399 Z3A.34 [id number] [facility] [address],[place] [address] 06/13/2024 15:57:00 06/13/2024 18:14:36 Dichorionic diamniotic twin 906263470 O30.043 O99.213 Z3A.35 [id number] Nubia Langston [place] [address],[place] [address] 06/13/2024 15:57:41 06/13/2024 18:14:04 Maternal obesity complicating , childbirth and the puerperium, antepartum 1745766516 07 O99.210 - testing at 34 weeks [id number] JULIA DEL RIO MD [place] [address],[place] [address] 06/13/2024 15:58:01 06/15/2024 02:53:18 Dichorionic diamniotic twin 319250523 O30.049 - +twin peak sign in 1st trimester- growth US q4 weeks- desires PCS at 38 weeks Maternal o besity complicating , childbirth and the puerperium, antepartum 7439301415 07 O99.210 - testing at 34 weeks Gestation period, 35 weeks 03079226 Z3A.35 [id number] [facility] [address],[place] [address] 06/20/2024 09:54:42 06/20/2024 11:33:55 Dichorionic diamniotic twin 528086100 O30.043 O99.213 Z3A.36 [id number] Ibis Trujillo [place] [address],[place] [address] 06/20/2024 09:55:16 06/21/2024 12:28:51 Twin [id number] O30.009 [id number] JULIA DEL RIO MD [place] [facility] [address],[place] [address] 06/20/2024 09:55:41 06/21/2024 04:40:38 Dichorionic diamniotic twin [id number] O30.049 - +twin peak sign in 1st trimester- growth US q4 weeks- desires PCS at 38 weeks Maternal o besity complicating , childbirth and the puerperium, antepartum [id number] 07 O99.210 - testing at 34 weeks Gestation period, 36 weeks [id number] Z3A.36 [id number] [facility] [address],[place] [address] 06/27/2024 09:52:18 06/27/2024 10:47:43 Maternal obesity complicating , childbirth and the puerperium, antepartum [id number] 07 O99.213 O30.043 Z3A.37 [id number] Nubia Langston [place] [address],[place] [address] 06/27/2024 09:52:57 06/27/2024 15:41:14 Twin [id number] O30.009 [id number] JULIA DEL RIO MD [place] [address],[place] [address] 06/27/2024 09:53:45 06/28/2024 03:54:14 Dichorionic diamniotic twin [id number] O30.049 - +twin peak sign in 1st trimester- growth US q4 weeks- desires PCS at 38 weeks Gestation period, 37 weeks [id number] Z3A.37 [id number] Maribeth Gibson [place] [address],[place] [address] 07/04/2024 09:45:13 07/04/2024 11:00:52 Maternal obesity complicating , childbirth and the puerperium, antepartum [id number] 07 O99.213 O30.043 Z3A.38 [id number] Nubia Langston [place] [address],[place] [address] 07/04/2024 09:46:03 07/04/2024 11:55:12 Twin [id number] O30.009 Health Concerns Section Related Observation LastModified by Organization Detai ls LastModified Time None Recorded Concern Status LastModified by Organization Details LastModified Time None Recorded Advance Directives Directive None Recorded Payers Encounter Date Sequence Insurance Name Policy Number Policy Aguilar Covered Member ID Aguilar Member ID Guarantor Name 06/27/2024 1 R - [facility] - DOS 05/03/2024 AND AFTER [id number] Mariana Diesen [id number] Mariana Diesen 06/27/2024 1 [employer] - [facility] - [facility] - DOS 05/03/2024 AND AFTER [id number] Mariana Diesen [id number] Mariana Diesen 07/04/2024 1 [employer] - [facility] - [facility] - DOS 05/03/2024 AND AFTER [id number] Mariana Diesen [id number] Mariana Diesen 07/04/2024 1 R - [facility] - DOS 05/03/2024 AND AFTER [id number] Mariana Diesen [id number] Mariana Diesen OBGyn Episode Ob Episode Information Episode Created Date Number of Fetuses Patient Bloodtype Patient rh Status Prepregnancy Weight lbs Domestic Partner Domestic Partner Phone Father Name [employer] Status 01/05/20 24 2 A Positive 236.6 OPEN Fetus Data First Name Last Name Admitted to NICU Weight (g) Sex Living Outcome Pediatric Complications Fetus ID Race Codes Race Delivery Type [id number] Problems Problem Notes Problem Name Start Date End Date Resolution Snomed Code Not e Anemia [id number] Body mass index 40+ - severely obese [id number] brielle ting 34wks Dichorionic diamniotic twin [id number] serial growth US incomplete anatomy x 2 - MFM referral faxed 03/28 [place] for anatomy scheduled 04/27 900 us only Mark Calculation Initial Mark Date Initial Exam Date Initial Exam Provider Initial Ultrasound Date Last Menstrual Period Date Ultra Sound Weeks Gestation 07/18/2024 01/05/2024 12/08/2023 10/12/2023 8 Eighteen To Twenty Week Mark Update Ultra Sound Date Fundal Height At Umbil Quickening Date Ultra Sound Latest Weeks Gestation Final Mark Confirmed By Final Mark Confirmed Date Final Mark Date Ultra Sound Latest Days Gestation 0 0 Pre-valeri Flowsheet Flowsheet Date 01/05/2024 López Score Blood Edema Fundus Height Fundus Units Glucose Ketones Leukocytes Nitrite Labor Signs Protein Cervic Dilation Cervic Effacement Cervic Station Type Weight in lbs Pre/Post Dialysis Refused BP Diastolic BP Location Tested BP Systolic BP Type Fetus Heart Rate Present Fetus Movement Comments Flowsheet Date 01/05/2024 López Score Blood Edema Fundus Height Fundus Units Glucose Ketones Leukocytes Nitrite Labor Signs Protein Cervic Dilation Cervic Effacement Cervic Station Type Weight in lbs Pre/Post Dialysis Refused Weight 235.943751031540 BP Diastolic BP Location Tested BP Systolic BP Type 80 128 Fetus Heart Rate Present Fetus Movement Comments Presents to establish prenat al care. complicated by di/di twin gestation. Nausea improved. PMH/PSH overall uncomplicated. NT/NB wnl x2. Chorionicity confirmed today. Desires NIPT, will draw today with new OB labs. Discussed typical care for di/di twins including serial growth US and 38 week delivery. RTC 4 weeks for routine care. Flowsheet Date 02/08/2024 López Score Blood Edema Fundus Height Fundus Units Glucose Ketones Leukocytes Nitrite Labor Signs Protein Cervic Dilation Cervic Effacement Cervic Station Type Weight in lbs Pre/Post Dialysis Refused 242.373428101009 BP Diastolic BP Location Tested BP Systolic BP Type 86 121 Fetus Heart Rate Present A 145 B 155 Fetus Movement A Yes B Yes Comments no complaints, no problems, routine care, no contractions, no vaginal bleeding, no loss of fluid, no cramping Flowsheet Date 02/29/2024 López Score Blood Edema Fundus Height Fundus Units Glucose Ketones Leukocytes Nitrite Labor Signs Protein Cervic Dilation Cervic Effacement Cervic Station Type Weight in lbs Pre/Post Dialysis Refused BP Diastolic BP Location Tested BP Systolic BP Type Fetus Heart Rate Present Fetus Movement Comments Flowsheet Date 02/29/2024 López Score Blood Edema Fundus Height Fundus Units Glucose Ketones Leukocytes Nitrite Labor Signs Protein Cervic Dilation Cervic Effacement Cervic Station neg none none trace Type Weight in lbs Pre/Post Dialysis Refused Weight 244.507760814231 BP Diastolic BP Location Tested BP Systolic BP Type 88 L arm 119 sitting Fetus Heart Rate Present A Present B Present Fetus Movement A Yes B Yes Comments Doing well, good movem ent. Some round ligament pain, better with sitting down. Heartburn, better with TUMS. Recommend pepcid. Anatomy today, incomplete. Will repeat in 4 weeks. EFW 50%/28%. Normal ODETTE x2. Discussed q4 week growth US. RTC 4 weeks. Flowsheet Date 03/28/2024 López Score Blood Edema Fundus Height Fundus Units Glucose Ketones Leukocytes Nitrite Labor Signs Protein Cervic Dilation Cervic Effacement Cervic Station Type Weight in lbs Pre/Post Dialysis Refused BP Diastolic BP Location Tested BP Systolic BP Type Fetus Heart Rate Present Fetus Movement Comments Flowsheet Date 03/28/2024 López Score Blood Edema Fundus Height Fundus Units Glucose Ketones Leukocytes Nitrite Labor Signs Protein Cervic Dilation Cervic Effacement Cervic Station neg none none trace Type Weight in lbs Pre/Post Dialysis Refused 250.837684210735 BP Diastolic BP Location Tested BP Systolic BP Type 82 L arm 126 sitting Fetus Heart Rate Present A Present B Present Fetus Movement A Yes B Yes Comments Doing well, good movem ent. No cramping or bleeding. Was just admitted to [facility] for pneumonia, feeling better, continues on oral antibiotics. Repeat anatomy today, complete and normal for baby A, still incomplete for baby B. 5% discordance, weight normal for gestational age x2. Will send to [facility] for completion of anatomy. Discussed GCT and labs for next visit. RTC 4 weeks. Flowsheet Date 04/24/2024 López Score Blood Edema Fundus Height Fundus Units Glucose Ketones Leukocytes Nitrite Labor Signs Protein Cervic Dilation Cervic Effacement Cervic Station neg trace Type Weight in lbs Pre/Post Dialysis Refused 254.658350022593 BP Diastolic BP Location Tested BP Systolic BP Type 85 L arm 119 sitting Fetus Heart Rate Present A 150 B 155 Fetus Movement A Yes B Yes Comments Good movement. No cram ping or bleeding. Has [facility] US scheduled 04/27 for completion of anatomy. GCT and labs today. Discussed tdap. RTC 2 weeks. Flowsheet Date 05/10/2024 López Score Blood Edema Fundus Height Fundus Units Glucose Ketones Leukocytes Nitrite Labor Signs Protein Cervic Dilation Cervic Effacement Cervic Station neg Type Weight in lbs Pre/Post Dialysis Refused Weight 260.656080997227 BP Diastolic BP Location Tested BP Systolic BP Type 91 L arm 135 sitting Fetus Heart Rate Present A 135 B 145 Fetus Movement A Yes B Yes Comments Doing well, good movem ent x2. No cramping or bleeding. Would like to restart monitoring at [facility]. Will continue q4 week growth US, as well as weekly testing for obesity at 34 weeks. Patient desires PCS at 38 weeks, regardless of presentation. Passed GCT, normal Hgb. RTC 2 weeks. Flowsheet Date 05/24/2024 López Score Blood Edema Fundus Height Fundus Units Glucose Ketones Leukocytes Nitrite Labor Signs Protein Cervic Dilation Cervic Effacement Cervic Station Type Weight in lbs Pre/Post Dialysis Refused BP Diastolic BP Location Tested BP Systolic BP Type Fetus Heart Rate Present Fetus Movement Comments Flowsheet Date 05/24/2024 López Score Blood Edema Fundus Height Fundus Units Glucose Ketones Leukocytes Nitrite Labor Signs Protein Cervic Dilation Cervic Effacement Cervic Station neg trace Type Weight in lbs Pre/Post Dialysis Refused Weight 260.133694874058 BP Diastolic BP Location Tested BP Systolic BP Type 85 L arm 130 sitting Fetus Heart Rate Present A Present B Present Fetus Movement A Yes B Yes Comments Patient c/o of Nikhil Mora . Slight swelling in feet and hands. Good movement x2. Growth US EFW 46%/41%. Would like PCS on 07/07. Will start testing at 34 weeks for BMI >40. Discussed preadmission. RTC 2 weeks. Flowsheet Date 06/06/2024 López Score Blood Edema Fundus Height Fundus Units Glucose Ketones Leukocytes Nitrite Labor Signs Protein Cervic Dilation Cervic Effacement Cervic Station Type Weight in lbs Pre/Post Dialysis Refused BP Diastolic BP Location Tested BP Systolic BP Type Fetus Heart Rate Present Fetus Movement Comments Flowsheet Date 06/06/2024 López Score Blood Edema Fundus Height Fundus Units Glucose Ketones Leukocytes Nitrite Labor Signs Protein Cervic Dilation Cervic Effacement Cervic Station Type Weight in lbs Pre/Post Dialysis Refused BP Diastolic BP Location Tested BP Systolic BP Type Fetus Heart Rate Present Fetus Movement Comments Flowsheet Date 06/06/2024 López Score Blood Edema Fundus Height Fundus Units Glucose Ketones Leukocytes Nitrite Labor Signs Protein Cervic Dilation Cervic Effacement Cervic Station Type Weight in lbs Pre/Post Dialysis Refused BP Diastolic BP Location Tested BP Systolic BP Type Fetus Heart Rate Present A 145 B 150 Fetus Movement A Yes B Yes Comments Doing well, good movem ent. Some dysuria, will send urine culture. No cramping or bleeding. BPP 10/10 x2 today. PCS scheduled. RTC 1 week for testing. Flowsheet Date 06/13/2024 López Score Blood Edema Fundus Height Fundus Units Glucose Ketones Leukocytes Nitrite Labor Signs Protein Cervic Dilation Cervic Effacement Cervic Station Type Weight in lbs Pre/Post Dialysis Refused BP Diastolic BP Location Tested BP Systolic BP Type Fetus Heart Rate Present Fetus Movement Comments Flowsheet Date 06/13/2024 López Score Blood Edema Fundus Height Fundus Units Glucose Ketones Leukocytes Nitrite Labor Signs Protein Cervic Dilation Cervic Effacement Cervic Station Type Weight in lbs Pre/Post Dialysis Refused BP Diastolic BP Location Tested BP Systolic BP Type Fetus Heart Rate Present Fetus Movement Comments Flowsheet Date 06/13/2024 López Score Blood Edema Fundus Height Fundus Units Glucose Ketones Leukocytes Nitrite Labor Signs Protein Cervic Dilation Cervic Effacement Cervic Station neg trace Type Weight in lbs Pre/Post Dialysis Refused Weight 268.21920597375 BP Diastolic BP Location Tested BP Systolic BP Type 88 L arm 130 sitting Fetus Heart Rate Present A 140 B 140 Fetus Movement A Yes B Yes Comments Patient c/o of slight crampi ng. Swelling in feet. Dysuria intermittently, urine culture negative for infection last week. BPP 10/10 x2. RTC 1 week. Flowsheet Date 06/20/2024 López Score Blood Edema Fundus Height Fundus Units Glucose Ketones Leukocytes Nitrite Labor Signs Protein Cervic Dilation Cervic Effacement Cervic Station Type Weight in lbs Pre/Post Dialysis Refused BP Diastolic BP Location Tested BP Systolic BP Type Fetus Heart Rate Present Fetus Movement Comments Flowsheet Date 06/20/2024 López Score Blood Edema Fundus Height Fundus Units Glucose Ketones Leukocytes Nitrite Labor Signs Protein Cervic Dilation Cervic Effacement Cervic Station Type Weight in lbs Pre/Post Dialysis Refused Weight 266.882273535110 BP Diastolic BP Location Tested BP Systolic BP Type 85 124 Fetus Heart Rate Present Fetus Movement Comments Flowsheet Date 06/20/2024 López Score Blood Edema Fundus Height Fundus Units Glucose Ketones Leukocytes Nitrite Labor Signs Protein Cervic Dilation Cervic Effacement Cervic Station Type Weight in lbs Pre/Post Dialysis Refused Weight 266.400046683870 BP Diastolic BP Location Tested BP Systolic BP Type 85 124 Fetus Heart Rate Present A 150 B 140 Fetus Movement A Yes B Yes Comments Doing well, good movem ent x2. Intermittent BH contractions. No bleeding or LOF. BPP 10/10 x2, EFW 48%/40%. Labor precautions discussed. RTC 1 week. Flowsheet Date 06/27/2024 López Score Blood Edema Fundus Height Fundus Units Glucose Ketones Leukocytes Nitrite Labor Signs Protein Cervic Dilation Cervic Effacement Cervic Station Type Weight in lbs Pre/Post Dialysis Refused BP Diastolic BP Location Tested BP Systolic BP Type Fetus Heart Rate Present Fetus Movement Comments Flowsheet Date 06/27/2024 López Score Blood Edema Fundus Height Fundus Units Glucose Ketones Leukocytes Nitrite Labor Signs Protein Cervic Dilation Cervic Effacement Cervic Station Type Weight in lbs Pre/Post Dialysis Refused BP Diastolic BP Location Tested BP Systolic BP Type Fetus Heart Rate Present Fetus Movement Comments Flowsheet Date 06/27/2024 López Score Blood Edema Fundus Height Fundus Units Glucose Ketones Leukocytes Nitrite Labor Signs Protein Cervic Dilation Cervic Effacement Cervic Station neg none Type Weight in lbs Pre/Post Dialysis Refused 270.36554327122 BP Diastolic BP Location Tested BP Systolic BP Type 88 L arm 136 sitting Fetus Heart Rate Present A 145 B 140 Fetus Movement A Yes B Yes Comments Patient c/o of Nikhil Mora , and slight swelling in hands and feet. Having soem back pain, not consistent. No bleeding or leakage of fluid. Good movement x2. BPP 10/10 x2, baby A with borderline high fluid. RTC 1 week. Labor precautions reviewed. Flowsheet Date 07/04/2024 López Score Blood Edema Fundus Height Fundus Units Glucose Ketones Leukocytes Nitrite Labor Signs Protein Cervic Dilation Cervic Effacement Cervic Station Type Weight in lbs Pre/Post Dialysis Refused BP Diastolic BP Location Tested BP Systolic BP Type Fetus Heart Rate Present Fetus Movement Comments Flowsheet Date 07/04/2024 López Score Blood Edema Fundus Height Fundus Units Glucose Ketones Leukocytes Nitrite Labor Signs Protein Cervic Dilation Cervic Effacement Cervic Station Type Weight in lbs Pre/Post Dialysis Refused BP Diastolic BP Location Tested BP Systolic BP Type Fetus Heart Rate Present Fetus Movement Comments Flowsheet Date 07/04/2024 López Score Blood Edema Fundus Height Fundus Units Glucose Ketones Leukocytes Nitrite Labor Signs Protein Cervic Dilation Cervic Effacement Cervic Station neg trace Type Weight in lbs Pre/Post Dialysis Refused Weight 271.780332909091 BP Diastolic BP Location Tested BP Systolic BP Type 93 L arm 131 sitting Fetus Heart Rate Present Fetus Movement A Yes B Yes Comments Patient c/o Nikhil Mora an d swelling in hands and feet. Good movement x2. BPP 10/10 x2. Menstrual History Last Menstrual Date Menses Monthly On Bcp Conception Prior Menses Frequency Hcg Plus Date Menarche Onset Age 0610/12/2022 Delivery Information Delivery Date Delivery Type Labor Anesthesia Weeks Gestation Incision Type Labor Labor Length Hrs Delivered By Post Complications Tubal Sterilization Discharge Date Comments Discharge Information Feeding Method Contraceptive Method Maternal HG B and HCT Levels
--- OUTSIDE RECORDS SUMMARY | 2024-07-06 12:02 | XMS_ITS | Clinical Summary ---
Author Organization [facility] Address [address] [place] [address] Phone Care Team Providers Care Student Accounts Manager Name Role Phone Unavailable Primary Care Provider Unavailabl e Encounters Date Type Department Care Team Description 07/04/2024 External Device Data [facility] ABSTRACTION Provider, Abstract 06/20/2024 External Device Data [facility] Provider, Abstract 05/30/2024 External Device Data [facility] Provider, Abstract 05/24/2024 External Device Data [facility] Provider, Abstract 05/24/2024 External Device Data [facility] Provider, Abstract 05/17/2024 External Device Data [facility] Provider, Abstract 05/04/2024 2:11 PM BICYCLE RENTAL CLERK - 05/04/2024 11:59 PM BICYCLE RENTAL CLERK Hospital Encounter [facility] Maternal and [facility] Floor [address] [facility] [address] [place] [phone] Leora Armas MD Discharge Disposition: Home or Self Care 05/02/2024 External Device Data [facility] ABSTRACTION Provider, Abstract 04/27/2024 8:59 AM BICYCLE RENTAL CLERK - 04/27/2024 11:59 PM BICYCLE RENTAL CLERK Hospital Encounter [facility] Maternal and [facility] [address] Diez [address] [place] [address] Julia Grajeda MD Discharge Disposition: Home or Self Care from Last 3 Months Social History Tobacco Use Types Packs/Day Years Used Date Smoking Tobacco: Never Assessed Comments Unknown Sex and Gender Information Value Date Recorded Sex Assigned at Not on file Legal Sex Female 7:03 AM BICYCLE RENTAL CLERK Gender Identity Not on file Sexual Orientation Not on file Plan of Treatment Health Maintenance Due Date Last Done Comments DTAP/TDAP/TD VACCINES (1 - Tdap) 09/29/2015 HEPATITIS B VACCINES (1 of 3 - 19+ 3-dose series) 09/29/2015 CERVICAL CANCER SCREENING 2017 INFLUENZA VACCINE (#1) 2023 HPV VACCINES Aged Out No longer eligi donna based on patient's age to complete this topic Procedures Procedure Name Priority Date/Time Associated Diagnosis Comments US OB FOLLOW UP PER FETUS Routine 05/04/2024 3:46 PM BICYCLE RENTAL CLERK Dichorionic diamniotic twin in third trimester Obesity affecting in third trimester, unspecified obesity type US OB DETAIL SINGLE GEST Routine 04/27/2024 10:39 AM BICYCLE RENTAL CLERK Dichorionic diamniotic twin in second trimester screening for malformation using ultrasonics from Last 3 Months Results * US OB FOLLOW UP PER FETUS (05/04/2024 3:46 PM BICYCLE RENTAL CLERK) Anatomical Region Laterality Modality Pelvis Ultrasound 05/04/2024 2:53 PM BICYCLE RENTAL CLERK Narrative 05/04/2024 4:59 PM BICYCLE RENTAL CLERK [facility] ----- Pat. Name: SERGIO WOODS Study Date: 05/04/2024 2:53pm Pat. NO: [id number] Referring MD: JULIA GRAJEDA MD Site: [facility] Sports Book Writer: Linus Steward RDMS : 1995 Age: 28 ----- INDICATION ----- Twin , Dichorionic/Diamniotic (Di/Di) Maternal Obesity (BMI<40) Complicating CODING ----- Diagnoses O99.213: Obesity complicating O30.043: Twin , dichorionic/diamniotic Z36.3: Encounter for screening for malformations Procedures 35507: Ultrasound, uterus, real time with image documentation, follow up, transabdominal approach per fetus. 2 HISTORY ----- OB History 1. Para 0 MATERNAL ASSESSMENT ----- Physical Exam Weight 102 kg. BMI 37.44 kg/m METHOD ----- Transabdominal ultrasound examination ----- Twin . Number of fetuses: 2 DATING ----- GA by prior assessment 29 w + 2 d MARY by prior assessment: 07/18/2024 Method of dating: Restore dating from previous exam Assigned: based on stated MARY, selected on 04/27/2024 Assigned GA 29 w + 2 d Assigned MARY: 07/18/2024 Fetus 1: GENERAL EVALUATION ----- Cardiac activity present. FHR 153 bpm. movements: present. Presentation: breech left Placenta: anterior Umbilical cord: Cord vessels: 3 vessel cord. Amniotic fluid: Amount of AF: normal amount. MVP 6.3 cm Fetus 2: GENERAL EVALUATION ----- Cardiac activity present. FHR 137 bpm. movements: present. Presentation: transverse top Placenta: posterior Umbilical cord: Cord vessels: 3 vessel cord. Amniotic fluid: Amount of AF: normal amount. MVP 5.0 cm Fetus 1: ANATOMY ----- The following structures appear normal: Head / Neck Cranium. Heart / Thorax 4-chamber view. Ductal arch view. Cardiac rhythm. Abdomen Stomach. Bladder. Extremities / Right foot. Skeleton The following structures could not be adequately visualized: Face Profile. Palate. Heart / Thorax RVOT view. LVOT view. High short axis view. Abdomen Cord insertion. Extremities / Hands. Skeleton sex: male. Fetus 2: ANATOMY ----- The following structures appear normal: Head / Neck Cranium. Heart / Thorax Cardiac rhythm. Abdomen Stomach. Bladder. The following structures could not be adequately visualized: Heart / Thorax Aortic arch view. Ductal arch view. Spine Cervical spine. Thoracic spine. Lumbar spine. Sacral spine. Extremities / Left hand. Skeleton sex: male. Fetus 1: GROWTH OVERVIEW ----- Exam date GA BPD (mm) HC (mm) AC (mm) FL (mm) HL (mm) EFW (g) 04/27/2024 28w 2d 72.2 61% 263.1 28% 240.2 43% 54.8 54% 46.5 20% 1,252 48% Fetus 2: GROWTH OVERVIEW ----- Exam date GA BPD (mm) HC (mm) AC (mm) FL (mm) HL (mm) EFW (g) 04/27/2024 28w 2d 68.8 20% 267.9 46% 235.0 29% 53.6 38% 45.5 10% 1,182 32% COMMENT ----- Patient's name and date of were verified by the form tamper prior to the exam IMPRESSION ----- SERGIO presents for a detailed anatomic survey for her history of dichorionic diamniotic twins with history of persistent incomplete anatomy on outside scans. A detailed complete anatomic survey was performed to evaluate both structural abnormalities as well as more subtle features of the face and extremities that can indicate aneuploidy. 1. Dichorionic diamniotic twin intrauterine with a gestational age of 29w 2d, based on previously established due date. 2. Twin A breech on maternal left. Twin B transverse and superior. 3. The amniotic fluid volume is within normal limits for both Twin A (DVP: 6.3 cm), and Twin B (DVP: 5.0 cm). 4. Detailed anatomic survey is unremarkable for both Twin A and Twin B. No gross structural abnormalities noted. No sonographic markers for aneuploidy noted. There is still persistent suboptimal views on anatomy (see below), secondary to positioning, late gestational age, and/or maternal acoustic properties. - Incomplete/suboptimal anatomy for Twin A (RVOT, right hand, right foot, profile, palate), and Twin B (DA, AA, spine, left hand). Comments: We reviewed the sonographic findings and limitations of ultrasound. The presence of a normal anatomic survey does not rule-out genetic, chromosomal or structural anomalies. The current normal ultrasound eliminates the majority of important structural defects. I discussed that anatomy is difficult to see later in gestation and in the setting of twins, and that we may not be able to clear all anatomy prior to delivery. We discussed assessment as standard following delivery. Recommendations: - Serial growth every 4 weeks. This should be completed at [facility] or [facility]. Attempt completion of remaining suboptimal anatomy at those visits. - testing with twice weekly Modified BPPs starting at 36 weeks for dichorionic diamniotic twins. Thank you for allowing us to participate in the care of this patient. Procedure Note Elisa Pate MD - 05/04/2024 [facility] ----- Pat. Name:Lon WOODS Date:05/04/2024 2:53pm Pat. NO: [id number] MD:JULIA GRAJEDA MD [facility] Steward RDMS :1995Age:28 ----- INDICATION ----- Twin , Dichorionic/Diamniotic (Di/Di) Maternal Obesity (BMI<40) Complicating CODING ----- Diagnoses O99.213: Obesity complicating O30.043: Twin , dichorionic/diamniotic Z36.3: Encounter for screening formalformations Procedures [id number]: Ultrasound, uterus, real time withimage documentation, follow up, transabdominal approach per fetus. 2 HISTORY ----- OB History 1. Para 0 MATERNAL ASSESSMENT ----- Physical Exam Weight 102 kg. BMI 37.44 kg/m METHOD ----- Transabdominal ultrasound examination ----- Twin . Number of fetuses: 2 DATING ----- GA by prior [id number] w + 2 d MARY by prior assessment:07/18/2024 Method of dating:Restore dating from previous exam Assigned:based on stated MARY, selected on 04/27/2024 Assigned GA29 w + 2 d Assigned MARY:07/18/2024 Fetus 1: GENERAL EVALUATION ----- Cardiac activity present. FHR 153 bpm. movements: present.Presentation: breech left Placenta: anterior Umbilical cord: Cord vessels: 3 vessel cord. Amniotic fluid: Amount of AF: normal amount. MVP 6.3 cm Fetus 2: GENERAL EVALUATION ----- Cardiac activity present. FHR 137 bpm. movements: present.Presentation: transverse top Placenta: posterior Umbilical cord: Cord vessels: 3 vessel cord. Amniotic fluid: Amount of AF: normal amount. MVP 5.0 cm Fetus 1: ANATOMY ----- The following structures appear normal: Head / Neck Cranium. Heart / Thorax 4-chamber view. Ductal arch view. Cardiacrhythm. Abdomen Stomach. Bladder. Extremities / Right foot. Skeleton The following structures could not be adequately visualized: Face Profile. Palate. Heart / Thorax RVOT view. LVOT view. High short axis view. Abdomen Cord insertion. Extremities / Hands. Skeleton sex: male. Fetus 2: ANATOMY ----- The following structures appear normal: Head / Neck Cranium. Heart / Thorax Cardiac rhythm. Abdomen Stomach. Bladder. The following structures could not be adequately visualized: Heart / Thorax Aortic arch view. Ductal arch view. Spine Cervical spine. Thoracic spine. Lumbar spine.Sacral spine. Extremities / Left hand. Skeleton sex: male. Fetus 1: GROWTH OVERVIEW ----- Exam date GA BPD (mm) HC (mm) AC (mm) FL(mm) HL (mm) EFW (g) 04/27/2024 28w 2d 72.2 61% 263.1 28% 240.2 43%54.8 54% 46.5 20% 1,252 48% Fetus 2: GROWTH OVERVIEW ----- Exam date GA BPD (mm) HC (mm) AC (mm) FL(mm) HL (mm) EFW (g) 04/27/2024 28w 2d 68.8 20% 267.9 46% 235.0 29%53.6 38% 45.5 10% 1,182 32% COMMENT ----- Patient's name and date of were verified by the form tamper prior tothe exam IMPRESSION ----- SERGIO presents for a detailed anatomic survey for her history ofdichorionic diamniotic twins with history of persistent incomplete anatomy on outside scans. A detailed complete anatomic survey was performed to evaluate bothstructural abnormalities as well as more subtle features of the face and extremities that can indicate aneuploidy. 1. Dichorionic diamniotic twin intrauterine with a gestationalage of 29w 2d, based on previously established due date. 2. Twin A breech on maternal left. Twin B transverse and superior. 3. The amniotic fluid volume is within normal limits for both Twin A (DVP:6.3 cm), and Twin B (DVP: 5.0 cm). 4. Detailed anatomic survey is unremarkable for both Twin A and TwinB. No gross structural abnormalities noted. No sonographic markers for aneuploidy noted. There is still persistentsuboptimal views on anatomy (see below), secondary to positioning, late gestational age, and/or maternal acousticproperties. - Incomplete/suboptimal anatomy for Twin A (RVOT, right hand, right foot,profile, palate), and Twin B (DA, AA, spine, left hand). Comments: We reviewed the sonographic findings and limitations of ultrasound. Thepresence of a normal anatomic survey does not rule-out genetic, chromosomal or structural anomalies. The current normalultrasound eliminates the majority of important structural defects. I discussed that anatomy is difficult to see later in gestationand in the setting of twins, and that we may not be able to clear all anatomy prior to delivery. We discussed assessmentas standard following delivery. Recommendations: - Serial growth every 4 weeks. This should be completed at [facility] or [facility]. Attempt completion of remaining suboptimal anatomy at those visits. - testing with twice weekly Modified BPPs starting at 36 weeksfor dichorionic diamniotic twins. Thank you for allowing us to participate in the care of this patient. us Leora Armas MD US ORDERABLES Final Result * US OB DETAIL SINGLE GEST (04/27/2024 10:39 AM BICYCLE RENTAL CLERK) Anatomical Region Laterality Modality Pelvis Ultrasound 04/27/2024 9:19 AM BICYCLE RENTAL CLERK Narrative 04/27/2024 10:53 AM BICYCLE RENTAL CLERK [facility] ----- Pat. Name: SERGIO WOODS Study Date: 04/27/2024 9:19am Pat. NO: [id number] Referring MD: JULIA GRAJEDA MD Site: [place] [employer] Writer: Keely Cartagena RDMS : 1995 Age: 28 ----- INDICATION ----- Anatomy Survey incomplete anatomy x 2 on outside scans Twin , Dichorionic/Diamniotic (Di/Di) Maternal Obesity (BMI<40) Complicating CODING ----- Diagnoses Z3A.28: Weeks of gestation O99.213: Obesity complicating O30.043: Twin , dichorionic/diamniotic Z36.3: Encounter for screening for malformations Procedures [id number]: Ultrasound, uterus, real time with image documentation, and maternal evaluation plus detailed anatomic examination, transabdominal approach 43653: Ultrasound, uterus, real time with image documentation, and maternal evaluation plus detailed anatomic examination, transabdominal approach; each additional fetus HISTORY ----- OB History 1. Para 0 MATERNAL ASSESSMENT ----- Physical Exam Weight 102 kg. BMI 37.44 kg/m METHOD ----- Transabdominal ultrasound examination ----- Twin . Number of fetuses: 2 DATING ----- Method of dating: based on stated MARY GA by prior assessment 28 w + 2 d MARY by prior assessment: 07/18/2024 Ultrasound examination on: 04/27/2024 GA by U/S based upon: AC, BPD, EFW, Femur, HC GA by U/S 28 w + 4 d MARY by U/S: 07/16/2024 GA by U/S based upon (Fetus 2): AC, BPD, EFW, Femur, HC GA by U/S (Fetus 2) 28 w + 1 d MARY by U/S (Fetus 2): 07/19/2024 Assigned: based on stated MARY, selected on 04/27/2024 Assigned GA 28 w + 2 d Assigned MARY: 07/18/2024 Fetus 1: BIOMETRY ----- BPD 72.2 mm 29w 0d 61% Hadlock OFD 92.5 mm 29w 6d 86% Kieran HC 263.1 mm 28w 4d 28% Hadlock Cerebellum tr 32.2 mm 29w 0d 55% Sawant AC 240.2 mm 28w 2d 43% Hadlock Femur 54.8 mm 29w 0d 54% Hadlock Humerus 46.5 mm 27w 3d 20% Kieran HC / AC 1.10 52% Nicolaides Weight Calculation: EFW 1,252 g 28w 2d 48% Hadlock EFW (lb,oz) 2 lb 12 oz EFW by Hadlock ([id number]) EFW discordance 5.6 % Head / Face / Neck Biometry: [employer] 4.4 mm CM 7.0 mm 58% Nicolaides Outer IOD 46.7 mm 29w 3d 52% Kieran Extremities / Bony Struc Biometry: FL / BPD 0.76 FL / HC 0.21 FL / AC 0.23 Fetus 2: BIOMETRY ----- BPD 68.8 mm 27w 5d 20% Hadlock OFD 97.6 mm 31w 4d 99% Kieran HC 267.9 mm 29w 1d 46% Hadlock Cerebellum tr 31.6 mm 28w 4d 47% Sawant AC 235.0 mm 27w 6d 29% Hadlock Femur 53.6 mm 28w 3d 38% Hadlock Humerus 45.5 mm 27w 0d 10% Kieran HC / AC 1.14 75% Nicolaides Weight Calculation: EFW 1,182 g 27w 6d 32% Hadlock EFW (lb,oz) 2 lb 10 oz EFW by Hadlock ([id number]) EFW discordance 5.6 % Head / Face / Neck Biometry: [employer] Developer 6.9 mm CM 5.6 mm 19% Nicolaides Outer IOD 42.6 mm 26w 6d 6% Kieran Extremities / Bony Struc Biometry: FL / BPD 0.78 FL / HC 0.20 FL / AC 0.23 Fetus 1: GENERAL EVALUATION ----- Cardiac activity present. FHR 144 bpm. movements: present. Presentation: cephalic left Placenta: Placental site: anterior Umbilical cord: Cord vessels: 3 vessel cord. Insertion site: placental insertion: normal Amniotic fluid: Amount of AF: normal amount. MVP 3.6 cm Fetus 2: GENERAL EVALUATION ----- Cardiac activity present. FHR 145 bpm. movements: visualized. Presentation: transverse top Placenta: Placental site: posterior Umbilical cord: Cord vessels: 3 vessel cord. Insertion site: placental insertion: normal Amniotic fluid: Amount of AF: normal amount. MVP 3.0 cm Fetus 1: ANATOMY ----- The following structures appear normal: Head / Neck Cranium. Lateral ventricles. Choroid plexus. Midline falx. Cavum septi pellucidi. Cerebellum. Cisterna magna. Thalami. Face Lips. Nose. Orbits. Heart / Thorax 3-vessel view. 4-knzirv-nsfwnpd view. Situs. Aortic arch view. Superior vena cava. Inferior vena cava. Cardiac rhythm. Diaphragm. Abdomen Stomach. Kidneys. Bladder. Spine Cervical spine. Thoracic spine. Lumbar spine. Sacral spine. Extremities / Arms. Legs. Left foot. Skeleton The following structures could not be adequately visualized: Face Profile. Palate. Heart / Thorax 4-chamber view. RVOT view. LVOT view. Ductal arch view. High short axis view. Abdomen Abdominal wall. Cord insertion. Extremities / Right hand. Left hand. Right foot. Skeleton Fetus 2: ANATOMY ----- The following structures appear normal: Head / Neck Cranium. Lateral ventricles. Choroid plexus. Midline falx. Cavum septi pellucidi. Cerebellum. Cisterna magna. Thalami. Face Lips. Profile. Nose. Palate. Orbits. Heart / Thorax 4-chamber view. RVOT view. LVOT view. 3-vessel view. 2-qayugp-yyxbmib view. Situs. Superior vena cava. Inferior vena cava. High short axis view. Cardiac rhythm. Diaphragm. Abdomen Abdominal wall. Cord insertion. Stomach. Kidneys. Bladder. Spine Sacral spine. Extremities / Arms. Right hand. Legs. Right foot. Left foot. Skeleton The following structures could not be adequately visualized: Heart / Thorax Aortic arch view. Ductal arch view. Spine Cervical spine. Thoracic spine. Lumbar spine. Extremities / Left hand. Skeleton MATERNAL STRUCTURES ----- Right Ovary Normal Left Ovary Normal Fetus 1: GROWTH OVERVIEW ----- Exam date GA BPD (mm) HC (mm) AC (mm) FL (mm) HL (mm) EFW (g) 04/27/2024 28w 2d 72.2 61% 263.1 28% 240.2 43% 54.8 54% 46.5 20% 1,252 48% Fetus 2: GROWTH OVERVIEW ----- Exam date GA BPD (mm) HC (mm) AC (mm) FL (mm) HL (mm) EFW (g) 04/27/2024 28w 2d 68.8 20% 267.9 46% 235.0 29% 53.6 38% 45.5 10% 1,182 32% COMMENT ----- Patient's name and date of were verified by the form tamper before the exam IMPRESSION ----- *chorionic * amniotic twin IUP at 28w 2d Twin A: Cephalic left presentation. Appropriate growth with estimated weight 1252 g (48%). Intertwin discordance is 5.6 %. No major structural malformations are identified within the limits of ultrasound, however there was suboptimal views of profile, palate, 4ch, crossover, RVO, LVO, DA, LONGTERM, hands, right foot. No soft markers of aneuploidy are identified. Normal amniotic fluid volume, MVP 3.6 cm. Placenta is anterior. Twin B: Transverse top presentation Appropriate growth with estimated weight 1182 g (32%). No major structural malformations are identified within the limits of ultrasound, however there were suboptimal views of DA, AA, sagittal C/T/L spine, left hand. No soft markers of aneuploidy are identified. Normal amniotic fluid volume, MVP 3 cm. Placenta is posterior. Recommendations: - Follow up to complete anatomy in 1 week given late GA. Thank you for inviting us to participate in your patient's care. Procedure Note Daphnie Malloy MD - 04/27/2024 [facility] ----- Pat. Name:Lon WOODS Date:04/27/2024 9:19am Pat. NO: [id number] MD:JULIA GRAJEDA MD [facility]Keely Cartagena RDMS :1995Age:28 ----- INDICATION ----- Anatomy Survey incomplete anatomy x2 on outside scans Twin , Dichorionic/Diamniotic (Di/Di) Maternal Obesity (BMI<40) Complicating CODING ----- Diagnoses Z3A.28: Weeks of gestation O99.213: Obesity complicating O30.043: Twin , dichorionic/diamniotic Z36.3: Encounter for screening formalformations Procedures [id number]: Ultrasound, uterus, real time withimage documentation, and maternal evaluation plus detailed anatomic examination,transabdominal approach 69994: Ultrasound, uterus, real time withimage documentation, and maternal evaluation plus detailed anatomic examination,transabdominal approach; each additional fetus HISTORY ----- OB History 1. Para 0 MATERNAL ASSESSMENT ----- Physical Exam Weight 102 kg. BMI 37.44 kg/m METHOD ----- Transabdominal ultrasound examination ----- Twin . Number of fetuses: 2 DATING ----- Method of dating:based on stated MARY GA by prior [id number] w + 2 d MARY by prior assessment:07/18/2024 Ultrasound examination on:04/27/2024 GA by U/S based upon:AC, BPD, EFW, Femur, HC GA by U/S28 w + 4 d MARY by U/S:07/16/2024 GA by U/S based upon (Fetus 2):AC, BPD, EFW, Femur, HC GA by U/S (Fetus 2)28 w + 1 d MARY by U/S (Fetus 2):07/19/2024 Assigned:based on stated MARY, selected on 04/27/2024 Assigned GA28 w + 2 d Assigned MARY:07/18/2024 Fetus 1: BIOMETRY ----- BPD 72.2 mm 29w 0d61% Hadlock OFD 92.5 mm 29w 6d86% Kieran HC 263.1 mm 28w 4d28% Hadlock Cerebellum tr 32.2 mm 29w 0d55% Jese AC 240.2 mm 28w 2d43% Hadlock Femur 54.8 mm 29w 0d54% Hadlock Humerus 46.5 mm 27w 3d20% Kieran HC / AC 1.10 52%Nicolaides Weight Calculation: EFW 1,252 g 28w 2d48% Hadlock EFW (lb,oz) 2 lb 12 oz EFW by Hadlock ([id number]) EFW discordance 5.6 % Head / Face / Neck Biometry: [employer] Developer 4.4 mm CM 7.0 mm 58%Nicolaides Outer IOD 46.7 mm 29w 3d 52%Kieran Extremities / Bony Struc Biometry: FL / BPD 0.76 FL / HC 0.21 FL / AC 0.23 Fetus 2: BIOMETRY ----- BPD 68.8 mm 27w 5d20% Hadlock OFD 97.6 mm 31w 4d99% Kieran HC 267.9 mm 29w 1d46% Hadlock Cerebellum tr 31.6 mm 28w 4d47% Sawant AC 235.0 mm 27w 6d29% Hadlock Femur 53.6 mm 28w 3d38% Hadlock Humerus 45.5 mm 27w 0d10% Kieran HC / AC 1.14 75%Nicolaides Weight Calculation: EFW 1,182 g 27w 6d32% Hadlock EFW (lb,oz) 2 lb 10 oz EFW by Hadlock ([id number]) EFW discordance 5.6 % Head / Face / Neck Biometry: [employer] Developer 6.9 mm CM 5.6 mm 19%Nicolaides Outer IOD 42.6 mm 26w 6d 6%Kieran Extremities / Bony Struc Biometry: FL / BPD 0.78 FL / HC 0.20 FL / AC 0.23 Fetus 1: GENERAL EVALUATION ----- Cardiac activity present. FHR 144 bpm. movements: present.Presentation: cephalic left Placenta: Placental site: anterior Umbilical cord: Cord vessels: 3 vessel cord. Insertion site: placentalinsertion: normal Amniotic fluid: Amount of AF: normal amount. MVP 3.6 cm Fetus 2: GENERAL EVALUATION ----- Cardiac activity present. FHR 145 bpm. movements: visualized.Presentation: transverse top Placenta: Placental site: posterior Umbilical cord: Cord vessels: 3 vessel cord. Insertion site: placentalinsertion: normal Amniotic fluid: Amount of AF: normal amount. MVP 3.0 cm Fetus 1: ANATOMY ----- The following structures appear normal: Head / Neck Cranium. Lateral ventricles. Choroid plexus.Midline falx. Cavum septi pellucidi. Cerebellum. Cisterna magna. Thalami. Face Lips. Nose. Orbits. Heart / Thorax 3-vessel view. 1-idgmcz-ingkotx view. Situs.Aortic arch view. Superior vena cava. Inferior vena cava. Cardiac rhythm. Diaphragm. Abdomen Stomach. Kidneys. Bladder. Spine Cervical spine. Thoracic spine. Lumbar spine.Sacral spine. Extremities / Arms. Legs. Left foot. Skeleton The following structures could not be adequately visualized: Face Profile. Palate. Heart / Thorax 4-chamber view. RVOT view. LVOT view. Ductal archview. High short axis view. Abdomen Abdominal wall. Cord insertion. Extremities / Right hand. Left hand. Right foot. Skeleton Fetus 2: ANATOMY ----- The following structures appear normal: Head / Neck Cranium. Lateral ventricles. Choroid plexus.Midline falx. Cavum septi pellucidi. Cerebellum. Cisterna magna. Thalami. Face Lips. Profile. Nose. Palate. Orbits. Heart / Thorax 4-chamber view. RVOT view. LVOT view. 3-vesselview. 0-ypwesz-uxgobgf view. Situs. Superior vena cava. Inferior vena cava. High short axis view. Cardiacrhythm. Diaphragm. Abdomen Abdominal wall. Cord insertion. Stomach. Kidneys.Bladder. Spine Sacral spine. Extremities / Arms. Right hand. Legs. Right foot. Left foot. Skeleton The following structures could not be adequately visualized: Heart / Thorax Aortic arch view. Ductal arch view. Spine Cervical spine. Thoracic spine. Lumbar spine. Extremities / Left hand. Skeleton MATERNAL STRUCTURES ----- Right Ovary Normal Left Ovary Normal Fetus 1: GROWTH OVERVIEW ----- Exam date GA BPD (mm) HC (mm) AC (mm) FL(mm) HL (mm) EFW (g) 04/27/2024 28w 2d 72.2 61% 263.1 28% 240.2 43%54.8 54% 46.5 20% 1,252 48% Fetus 2: GROWTH OVERVIEW ----- Exam date GA BPD (mm) HC (mm) AC (mm) FL(mm) HL (mm) EFW (g) 04/27/2024 28w 2d 68.8 20% 267.9 46% 235.0 29%53.6 38% 45.5 10% 1,182 32% COMMENT ----- Patient's name and date of were verified by the form tamper beforethe exam IMPRESSION ----- *chorionic * amniotic twin IUP at 28w 2d Twin A: Cephalic left presentation. Appropriate growth with estimated weight 1252 g (48%). Intertwindiscordance is 5.6 %. No major structural malformations are identified within the limitsof ultrasound, however there was suboptimal views of profile, palate, 4ch, crossover, RVO, LVO, DA, LONGTERM, hands, rightfoot. No soft markers of aneuploidy are identified. Normal amniotic fluid volume, MVP 3.6 cm. Placenta is anterior. Twin B: Transverse top presentation Appropriate growth with estimated weight 1182 g (32%). No major structural malformations are identified within the limitsof ultrasound, however there were suboptimal views of DA, AA, sagittal C/T/L spine, left hand. No soft markers ofaneuploidy are identified. Normal amniotic fluid volume, MVP 3 cm. Placenta is posterior. Recommendations: - Follow up to complete anatomy in 1 week given late GA. Thank you for inviting us to participate in your patient's care. us Julia Grajeda MD ORDERABLES Final Result from Last 3 Months Insurance [employer] [id number] [facility] Address: [facility] [address] [place] [address]
[2024-07-06 12:29] LABS: Syphilis IgG/IgM Antibody Negative (Negative)
[2024-07-06 12:43] LABS: HIV 1/2 Ab P24 Ag Result Negative (Negative)
== END 2024-07-06 10:28 | disposition home or self-care (01) ==
LOC: ANHLAB 10:30
PROVIDERS: PCP Internal Medicine; Visit Provider Obstetrics & Gynecology
DX: Z01.812 Encounter for preprocedural laboratory examination (principal)
CPT/HCPCS: 36415; 85027; 85461; 86593; 86703; 86850; 86900; 86901; G0432

== ENCOUNTER 2024-07-07 05:20 | Inpatient (IN) | payer OTHER, SELFPAY ==
[2024-07-07] VITALS (104 sets, daily range): BP systolic 106–163; BP diastolic 63–101; PULSE 56–300; RESP 10–18; TEMP 36.3–36.6; O2SAT 96–100; BMI 46.5
--- OUTSIDE RECORDS SUMMARY | 2024-07-07 01:05 | XMS_ITS | Clinical Summary ---
Author Organization [facility] Address [address] [place] [address] Phone Care Team Providers Care Social Media Analyst Name Role Phone Unavailable Primary Care Provider [...] STL ABSTRACTION Provider, Abstract 05/04/2024 2:11 PM STOCK HOUSE WORKER - 05/04/2024 11:59 PM STOCK HOUSE WORKER Hospital Encounter [facility] Maternal and [facility] Floor [facility] [address] [place] [id number] Leora Armas MD Discharge Disposition: Home or Self Care 05/02/2024 External Device Data STL ABSTRACTION Provider, Abstract 04/27/2024 8:59 AM STOCK HOUSE WORKER - 04/27/2024 11:59 PM STOCK HOUSE WORKER Hospital Encounter [facility] Maternal and [facility] [address] [place] [address] Julia Grajeda MD Discharge Disposition: Home or Self Care from Last 3 Months Social History Tobacco Use Types Packs/Day Years Used Date Smoking Tobacco: Never Assessed Comments Unknown Sex and Gender Information Value Date Recorded Sex Assigned at Not on file Legal Sex Female 7:03 AM STOCK HOUSE WORKER Gender Identity Not on file Sexual Orientation [...] UP PER FETUS Routine 05/04/2024 3:46 PM STOCK HOUSE WORKER Dichorionic diamniotic twin in third trimester Obesity affecting in third trimester, unspecified obesity type US OB DETAIL SINGLE GEST Routine 04/27/2024 10:39 AM STOCK HOUSE WORKER Dichorionic diamniotic twin in second trimester screening for malformation using ultrasonics from Last 3 Months Results * US OB FOLLOW UP PER FETUS (05/04/2024 3:46 PM STOCK HOUSE WORKER) Anatomical Region Laterality Modality Pelvis Ultrasound 05/04/2024 2:53 PM STOCK HOUSE WORKER Narrative 05/04/2024 4:59 PM STOCK HOUSE WORKER [employer] [employer] ----- Pat. Name: SERGIO WOODS Study Date: 05/04/2024 2:53pm Pat. NO: [id number] Referring MD: JULIA GRAJEDA MD Site: [facility] Charge Manager: Linus Steward RDMS : 1995 Age: 28 ----- INDICATION ----- Twin , Dichorionic/Diamniotic (Di/Di) Maternal Obesity (BMI<40) Complicating CODING ----- Diagnoses O99.213: Obesity complicating O30.043: Twin , dichorionic/diamniotic Z36.3: Encounter for screening for malformations Procedures 57283: Ultrasound, uterus, real time with image documentation, [...] and date of were verified by the outbound sales agent prior to the exam IMPRESSION ----- SREGIO presents for a detailed anatomic survey for [...] 4 weeks. This should be completed at [facility] or [facility]. Attempt completion of remaining suboptimal anatomy at those visits. - testing with twice weekly Modified BPPs starting at 36 weeks for dichorionic diamniotic twins. Thank you for allowing us to participate in the care of this patient. Procedure Note Elisa Pate MD - 05/04/2024 [facility] [employer] ----- Pat. Name:Lon WOODS Date:05/04/2024 2:53pm Pat. NO: [id number] MD:JULIA GRAJEDA [facility] Ste[facility] RDMS :1995Age:28 ----- INDICATION ----- Twin , Dichorionic/Diamniotic (Di/Di) Maternal Obesity (BMI<40) Complicating CODING ----- Diagnoses O99.213: Obesity complicating O30.043: Twin , dichorionic/diamniotic Z36.3: Encounter for screening formalformations Procedures [id number]: Ultrasound, uterus, real time withimage documentation, follow up, transabdominal approach per fetus. 2 HISTORY ----- OB History 1. Para 0 MATERNAL ASSESSMENT ----- Physical Exam Weight 102 kg. BMI 37.44 kg/m METHOD ----- Transabdominal ultrasound examination ----- Twin . Number of fetuses: 2 DATING ----- GA by prior [id number] w + 2 d MARY by prior [...] and date of were verified by the outbound sales agent prior tothe exam IMPRESSION ----- SERGIO presents [...] 4 weeks. This should be completed at [facility] or [facility]. Attempt completion of remaining suboptimal anatomy at those visits. - testing with twice weekly Modified BPPs starting at 36 weeksfor dichorionic diamniotic twins. Thank you for allowing us to participate in the care of this patient. us Leora Armas MD US ORDERABLES Final Result * US OB DETAIL SINGLE GEST (04/27/2024 10:39 AM STOCK HOUSE WORKER) Anatomical Region Laterality Modality Pelvis Ultrasound 04/27/2024 9:19 AM STOCK HOUSE WORKER Narrative 04/27/2024 10:53 AM STOCK HOUSE WORKER STL COMP ----- Pat. Name: SERGIO WOODS Study Date: 04/27/2024 9:19am Pat. NO: [id number] Referring MD: JULIA GRAJEDA MD Site: [place] Charge Manager: Keely Cartagena RDMS : 1995 Age: 28 ----- INDICATION ----- Anatomy Survey incomplete anatomy x 2 on outside scans Twin , Dichorionic/Diamniotic (Di/Di) Maternal Obesity (BMI<40) Complicating CODING ----- Diagnoses Z3A.28: Weeks of gestation O99.213: Obesity complicating O30.043: Twin , dichorionic/diamniotic Z36.3: Encounter for screening for malformations Procedures 56692: Ultrasound, uterus, real time with image documentation, and maternal evaluation plus detailed anatomic examination, transabdominal approach 09004: Ultrasound, uterus, real time with image documentation, [...] 2 lb 12 oz EFW by Hadlock ([id number]) EFW discordance 5.6 % Head / Face / Neck Biometry: Doubling Machine Operator 4.4 mm CM 7.0 mm 58% Nicolaides [...] 2 lb 10 oz EFW by Hadlock ([id number]) EFW discordance 5.6 % Head / Face / Neck Biometry: Doubling Machine Operator 6.9 mm CM 5.6 mm 19% Nicolaides [...] Nose. Orbits. Heart / Thorax 3-vessel view. 5-wtuosp-xreigma view. Situs. Aortic arch view. Superior vena [...] view. RVOT view. LVOT view. 3-vessel view. 2-hkrpnv-hkarvmt view. Situs. Superior vena cava. Inferior vena [...] and date of were verified by the outbound sales agent before the exam IMPRESSION ----- *chorionic * amniotic twin IUP at 28w 2d Twin A: Cephalic left presentation. Appropriate growth with estimated weight 1252 g (48%). Intertwin discordance is 5.6 %. No major structural malformations are identified within the limits of ultrasound, however there was suboptimal views of profile, palate, 4ch, crossover, RVO, LVO, DA, LONG TERM, hands, right foot. No soft markers of [...] Pat. Name:Lon WOODS Date:04/27/2024 9:19am Pat. NO: [id number] MD:JULIA GRAJEDA MD [facility]Keely Cartagena RDMS :1995Age:28 ----- INDICATION ----- Anatomy Survey incomplete anatomy x2 on outside scans Twin , Dichorionic/Diamniotic (Di/Di) Maternal Obesity (BMI<40) Complicating CODING ----- Diagnoses Z3A.28: Weeks of gestation O99.213: Obesity complicating O30.043: Twin , dichorionic/diamniotic Z36.3: Encounter for screening formalformations Procedures 61912: Ultrasound, uterus, real time withimage documentation, and maternal evaluation plus detailed anatomic examination,transabdominal approach 80523: Ultrasound, uterus, real time withimage documentation, and maternal evaluation plus detailed anatomic examination,transabdominal approach; each additional fetus HISTORY ----- OB History 1. Para 0 MATERNAL ASSESSMENT ----- Physical Exam Weight 102 kg. BMI 37.44 kg/m METHOD ----- Transabdominal ultrasound examination ----- Twin . Number of fetuses: 2 DATING ----- Method of dating:based on stated MARY GA by prior w + 2 d MARY by prior [...] 2 lb 12 oz EFW by Hadlock ([id number]) EFW discordance 5.6 % Head / Face / Neck Biometry: Doubling Machine Operator 4.4 mm CM 7.0 mm 58%Nicolaides Outer [...] 2 lb 10 oz EFW by Hadlock ([id number]) EFW discordance 5.6 % Head / Face / Neck Biometry: Doubling Machine Operator 6.9 mm CM 5.6 mm 19%Nicolaides Outer [...] Nose. Orbits. Heart / Thorax 3-vessel view. 7-hwobgp-tcacrpq view. Situs.Aortic arch view. Superior vena cava. [...] 4-chamber view. RVOT view. LVOT view. 3-vesselview. 5-orrksc-ssvpmdh view. Situs. Superior vena cava. Inferior vena [...] and date of were verified by the outbound sales agent beforethe exam IMPRESSION ----- *chorionic * amniotic twin IUP at 28w 2d Twin A: Cephalic left presentation. Appropriate growth with estimated weight 1252 g (48%). Intertwindiscordance is 5.6 %. No major structural malformations are identified within the limitsof ultrasound, however there was suboptimal views of profile, palate, 4ch, crossover, RVO, LVO, DA, LONG TERM, hands, rightfoot. No soft markers of aneuploidy [...] Final Result from Last 3 Months Insurance [employer] [id number]
[2024-07-07] MEDS: ACETAMINOPHEN 500 MG TABLET 1000 MG PO (05:53)
[2024-07-07] MEDS: LACTATED RINGERS 1,000 ML 125 ML IV CONT ×2 (05:55→07:28)
--- NOTE | 2024-07-07 06:12 | LDADM ---
This patient, Mariana Shanks, was admitted to Labor/Delivery/Recovery 120 on 07/07/24 at 05:20. Plans for labor, pain management and were discussed with patient. Patient/family oriented to hospital policies and general routines including ID bracelet, bed and alarms, visiting hours, pain management, procedures, bathroom and other care routines, personal items, smoking policy, room service/diet and guest tray routines, security routines, and visiting hours. Patient/Family are encouraged to report perceived risks to care and to ask questions if they do not understand what they are told or what they should do. See OBIX for further documentation.
--- NOTE | 2024-07-07 07:18 | PM.IMHP ---
H&P: HPI History of Present Illness Date/Time: 07/07/24 07:18 Chief Complaint: di di twin gestation Narrative: Patient is at 28 year old who presents for primary c section for di/di twin gestation. Her has been otherwise uncomplicated. She has been compliant with testing which has been reactive x2. Growth US has been normal x2. She denies strong contractions, leakage of fluid or vaginal bleeding. She reports good movement x2. Review of Systems Review of Systems: All systems reviewed & are unremarkable except as noted in HPI and below PMFSH Past Medical History Medical History Tachycardia Surgical History Surgical History History of hip surgery right hip surgery for labral tear History of placement of ear tubes History of tonsillectomy Family History Family History (Updated 06/12/24 @ 15:46 by Katie Frazier RN) Mother Breast cancer Father Diabetes mellitus Other Family history non-contributory Social History Social History Social History: Surrogate medical decision maker: Justen Shanks ([phone]), spouse. Code status: Full code. Smoking status: Never smoker Alcohol intake: never Substance use: never Substance use type: does not use Do You Feel Safe in your Home?: Yes Lack of Transportation: No Lack of Food: Never True Current Housing: I Have Housing Concerned About Future Housing: No Difficulty Paying Gas/Electric Bills: No Difficulty Paying for Meds: No Currently Unemployed: No Education: Bachelor's Degree Difficulty w/ Childcare or Family Care: No Additional living arrangements comments: Lives with spouse in [place]. Additional occupation/education comments: [employer]. Spiritual care concerns: No Meds Home Medications and Allergies Home Medications ?Medication ?Instructions ?Recorded ?Confirmed ?Type calcium carbonate 1,250 mg PO BID PRN Acid Reflux 03/26/24 07/07/24 History vits 75-iron 28 mg-folic 1 pkg PO DAILY 03/26/24 07/07/24 History acid 800 mcg-omega3 440 mg oral pack pseudoephedrine-guaifenesin ER 60 1 tablet PO BID 03/26/24 06/12/24 History mg-600 mg tablet,extend release 12hr (Mucinex D) Allergies Allergy/AdvReac Type Severity Reaction Status Date / Time No Known Allergies Allergy Verified 07/07/24 06:11 Vital Signs Vital Signs - 24 hr 07/07/24 05:35 07/07/24 05:56 07/07/24 05:57 Pulse Rate 92 Blood Pressure 120/69 Pulse Oximetry 99 99 Oxygen Delivery 07/07/24 06:01 07/07/24 06:06 07/07/24 06:11 Pulse Rate 100 Blood Pressure 133/89 Pulse Oximetry 99 99 99 Oxygen Delivery 07/07/24 06:11 07/07/24 06:16 07/07/24 06:21 Pulse Rate Blood Pressure Pulse Oximetry 99 99 Oxygen Delivery Room Air 07/07/24 06:26 07/07/24 06:31 Pulse Rate Blood Pressure Pulse Oximetry 98 99 Oxygen Delivery Exam Const: General: comfortable and no acute distress HENMT: Mouth: Yes moist mucous membranes Eyes: General: appearance normal, both eyes and all related structures Resp: Effort & Inspection: normal respiratory effort Cardio: Rate: regular rate Skin: General skin exam: normal color Extrem: General: normal to inspection Psych: Mental Status: mental status grossly normal Assessment and Plan Assessment and plan (1) Dichorionic diamniotic twin : Code(s): O30.049 - Twin , dichorionic/diamniotic, unspecified trimester Status: Acute Assessment and Plan: - risks and benefits of primary c section vs vaginal delivery discussed with patient who desires to proceed with primary c section - di/di twin , otherwise uncomplicated - NST reactive x2 on arrival
[2024-07-07] MEDS: ONDANSETRON INJ 4 MG/2 ML VIAL IV PUSH ×2 (07:25→12:04)
[2024-07-07] MEDS: FAMOTIDINE 20 MG/2 ML VIAL IV PUSH (07:25)
--- NOTE | 2024-07-07 07:25 | WPDHPUPDATE1 ---
History and Physical Update Update Date/Time: 07/07/24 07:25 History and Physical has been reviewed, including an updated exam of the patient. There are NO changes in the patient's condition. Risks, benefits, and alternatives have been discussed and questions answered. Patient agrees to proceed with procedure.
[2024-07-07] MEDS: ceFAZolin 3 GM/D5W 100 ML 100 ML IVPB (07:48)
--- NOTE | 2024-07-07 08:00 | WPDANESEPPF ---
Anes - Initial Pre Proc Eval Procedure: Operation Date: 07/07/24 07:30 Proposed Procedures p Section - Bill Grajeda MD Date/Time: 07/07/24 08:00 Surgeon: Bill Grajeda MD Pre Op Diagnosis: C/S Twins Patient Data Age: 28 Gender: F Height: 1.63 m Weight: 123 kg Last Vital Signs Pulse 100 07/07/24 06:01 BP 133/89 07/07/24 06:01 Pulse Ox 99 07/07/24 06:31 O2 Del Method Room Air 07/07/24 06:11 Allergies Allergy/AdvReac Type Severity Reaction Status Date / Time No Known Allergies Allergy Verified 07/07/24 06:11 Home Medications ?Medication ?Instructions ?Recorded ?Confirmed ?Type calcium carbonate 1,250 mg PO BID PRN Acid Reflux 03/26/24 07/07/24 History vits 75-iron 28 mg-folic 1 pkg PO DAILY 03/26/24 07/07/24 History acid 800 mcg-omega3 440 mg oral pack pseudoephedrine-guaifenesin ER 60 1 tablet PO BID 03/26/24 06/12/24 History mg-600 mg tablet,extend release 12hr (Mucinex D) Patient hx anesthesia problems: none Family hx anesthesia problems: none Results Review: All pre-operative results and documents have been reviewed as part of the pre-operative evaluation. [facility] Past Medical History Medical History Tachycardia Surgical History Surgical History History of hip surgery right hip surgery for labral tear History of placement of ear tubes History of tonsillectomy Family History Family History Mother Breast cancer Father Diabetes mellitus Other Family history non-contributory Social History Social History Social History: Surrogate medical decision maker: Justen Shanks ([phone]), spouse. Code status: Full code. Smoking status: Never smoker Alcohol intake: never Substance use: never Substance use type: does not use Do You Feel Safe in your Home?: Yes Lack of Transportation: No Lack of Food: Never True Current Housing: I Have Housing Concerned About Future Housing: No Difficulty Paying Gas/Electric Bills: No Difficulty Paying for Meds: No Currently Unemployed: No Education: Bachelor's Degree Difficulty w/ Childcare or Family Care: No Additional living arrangements comments: Lives with spouse in [place]. Additional occupation/education comments: [email or web address]. Spiritual care concerns: No Anes - Eval Final PreProcedure Day of Procedure 07/07/24 08:00 Patient weight: morbidly obese Lungs: normal air movement Airway: Mallampati scale class II Neurological: alert and oriented Last oral intake: >/= 8 hours ASA classification: III Emergent: no Anesthetic plan: proceed Anesthesia type and monitoring: regional spinal and standard monitoring Results Review: All pre-operative results and documents have been reviewed as part of the pre-operative evaluation. BMI 46, of twins. Informed Consent: The patient's anesthetic plan and its attendant risks and benefits were discussed with the patient/family/POA. Questions were solicited and answers provided to the satisfaction of the patient/family/POA.
[2024-07-07] MEDS: METHYLERGONOVINE MALEATE 0.2 MG/ML VIAL IM (11:30)
[2024-07-07] MEDS: KETOROLAC 15 MG/ML VIAL (*BKC) IV PUSH ×2 (12:39→18:23)
[2024-07-07] MEDS: ACETAMINOPHEN 325 MG TABLET 650 MG PO ×2 (12:40→18:20)
--- NOTE | 2024-07-07 15:15 | OBPPTRN ---
Patient transferred to post room #277 via ( stretcher). Support person present. Oriented to unit, room, information board, rooming in, admission packet and security measures. Patient verbalizes understanding.
--- NOTE | 2024-07-07 16:00 | PC.NURSE ---
Mother has requested to use her own Spectra breast pump that she brought because both of her twin boys were transferred to [facility]. RN gave instructions on cleaning, care, usage, that there should be no pain, pumping schedule for milk production, collection, and storage of human milk. Per patient she was assessed in Dr. Grajeda's office for correct flange size (said she measured at 24mm and was using the size 28 flange, family in room at this time and if she needs re-measured will do after they leave), to pump for comfort and nipple stretching/stimulation for adequate milk production every 3 hours (8 times in 24 hours) 1-2 times at night. Parents are encouraged to record the pumping schedule on the feeding sheet.?RN set up her pump and then mother realized that the power cord for the pump is at home, family member is going to retrieve it for her. Mother voiced understanding of the education shared along with mom/baby guide and the pump measurement, flange fit handout for additional resource information. Reported to the Primary RN.
--- NOTE | 2024-07-07 16:10 | W.PM.OBCSD ---
OB - Delivery Note Procedure Delivery date: 07/07/24 Pre-op diagnosis: Multiple Gestation (di/di twin gestation) Post-op Diagnosis: Same Delivery monitor: External FHT Prior to decision for section, ACOG/SMFM labor guidelines were considered and discussed with the patient and staff. Decision made to proceed with the section.: Yes Procedure Performed: Primary Primary branch: low cervical, transverse Surgeon: Bill Grajeda MD Anesthesia type: Epidural Description of Procedure/Findings: The patient was taken to the operating room where she was placed in the dorsal supine position with a leftward tilt. The electronic monitor was placed and heart rate was found to be reassuring. She was prepped and draped in the normal sterile fashion, and anesthesia was checked to be adequate. A Pfannenstiel skin incision was made with the scalpel and carried through to the underlying layer of fascia with the scalpel. The fascia was incised in the midline and the incision extended laterally with the Thomason scissors. The superior aspect of the fascial incision was then grasped with Chandra clamps, elevated, and the underlying rectus muscles dissected off bluntly and with Thomason scissors. Attention was then turned to the inferior aspect of the fascial incision, which in similar fashion was grasped, elevated, and the rectus muscles dissected off.? The rectus muscles were then in the midline, and the peritoneum entered bluntly. The peritoneal incision was extended superiorly and inferiorly with good visualization of the bladder. With the bladder blade providing retraction and visualization, the lower uterine segment was incised in a transverse fashion with the scalpel. The uterine incision was then extended laterally. The bladder blade was removed and the first 's head was elevated and delivered atraumatically. The remainder of the infant was then delivered without difficulty. The umbilical cord was doubly clamped and cut. The infant was then handed off to the waiting nursing staff. Specimens then obtained as listed below.Then the second infant's feet were delivered atraumatically. The remainder of the was then delivered without difficulty. The umbilical cord was doubly clamped and cut. The was then handed off to the waiting nursing staff. Specimens then obtained as listed below. The placentas were then removed manually and the uterus was exteriorized and cleared of all clots and debris. The uterine incision was repaired with 0-Monocryl in a running, interlocked fashion. The posterior cul-de-sac was manually cleared of all clots and debris. The uterus was returned to the abdomen. The gutters were then manually cleared of all clots and debris.? The uterine incision was visualized to be hemostatic. The fascia was reapproximated with 0-Vicryl in a running fashion. The subcutaneous tissues were irrigated with warmed normal saline, and hemostasis was assured. The subcutaneous tissue was greater than 2 cm and closed in a running fashion with 2-0 plain gut suture.? The skin was closed with 4-0 monocryl in a running subcuticular stitch. Fundal pressure was applied to express remaining intrauterine clots and debris. The patient tolerated the procedure well. Sponge, lap, and needle counts were correct times three per nursing. The patient was taken to the recovery room in stable condition. Specimen: No Estimated Blood Loss: 585 Pathology: None sent Complications: No immediate complications Condition: Stable Disposition: Floor [place] Baby Date of : 07/07/24 Gestational Age by Date: 38 Infant gender: Male presentation: vertex Placenta delivery description: Expressed Cord Vessel Description: 3 Vessels Twins 2: Date of : 07/07/24 Weeks of gestation at delivery: 38 Infant gender: Male presentation: transverse Placental delivery description: Expressed Cord Vessel Description: 3 Vessels
[2024-07-07] MEDS: SIMETHICONE 80 MG TAB.CHEW PO (16:38)
[2024-07-07] MEDS: DOCUSATE SODIUM 100 MG CAPSULE PO (16:38)
[2024-07-07] MEDS: DEXTROSE 5%/0.45% SOD CHL 1,000 ML 125 ML IV CONT (17:06)
[2024-07-08] MEDS: DEXTROSE 5%/0.45% SOD CHL 1,000 ML 125 ML IV CONT (00:23)
[2024-07-08] MEDS: KETOROLAC 15 MG/ML VIAL (*BKC) IV PUSH ×2 (00:24→05:49)
[2024-07-08] MEDS: ACETAMINOPHEN 325 MG TABLET 650 MG PO ×4 (00:24→23:31)
[2024-07-08 05:18] LABS: Basophils Percent Auto 0.4 % (0.2-1.2); Eosinophils Absolute Auto 0.1 K/mm3 (0-0.3); Eosinophils Percent Auto 1.4 % (0-4.4); Hematocrit 23.3 % (37.0-47.0); Immature Granulocyte Absolute 0.05 K/mm3 (0.00-0.031); Immature Granulocyte Percent A 0.9 % (0-0.5); Lymphocytes Absolute Auto 1.59 K/mm3 (0.9-3.2); Lymphocytes Percent Auto 28.5 % (18.3-44.2); Mean Corpuscular HGB Conc 29.6 g/dl (32-36); Mean Corpuscular Hemoglobin 26.6 pg (26-34); Mean Platelet Volume 11.7 fl (7.4-10.4); Monocytes Absolute Auto 0.4 K/mm3 (0.1-0.6); Monocytes Percent Auto 7.5 % (2.6-8.5); Neutrophils Absolute Auto 3.4 K/mm3 (1.3-6.7); Neutrophils Percent Auto 61.3 % (45.5-73.1); Platelet Count Result 166 k/mm3 (150-375); Red Blood Count 2.59 M/mm3 (4.2-5.4); White Blood Count 5.6 K/mm3 (4.5-10.0)
[2024-07-08 05:42] LABS: Hemoglobin 6.9 g/dL (12.0-15.0)
[2024-07-08 05:43] LABS: Anisocytosis 1+; Hypochromasia 1+; Platelet Estimate Adequate (Adequate); Schistocytes None Seen
[2024-07-08 05:46] LABS: Band Neutrophils Percent 0 % (0-6)
[2024-07-08 07:10] VITALS: BP 137/87; PULSE 101; RESP 18; TEMP 37.1; O2SAT 100
--- NOTE | 2024-07-08 07:30 | PC.NURSE ---
Met with patient regarding pumping questions. She is using her Spectra pump and is not getting much volume yet. Encouraged her to be consistent and to pump at least once in the night. We discussed that since she is pumping for 2 babies, she can increase her pumping time to 20 minutes at a few sessions today. Invited patient to look at pictures or videos of the babies while pumping or to have a blanket that smells like them close by. Discussed the cycles and vacuum levels of her Spectra with advise to use the highest comfortable setting. Flange size looks appropriate and she has no pain or rubbing. Patient hopes to go on a pass to see the babies today and wants to latch if allowed. Patient agrees to call out for any other questions or concerns. Reported to primary RN.
--- NOTE | 2024-07-08 08:40 | P.PNOB_ITS ---
OB - PN: Subj Subjective Date/time seen: 07/08/24 08:40 Patient comments: no complaints, pain well controlled, tolerating diet and flatus present OB - PN: Obj Data Labs 07/08/24 04:35 Labs: Laboratory Results - last 24 hr 07/08/24 04:35 WBC 5.6 RBC 2.59 L Hgb 6.9 L* D Hct 23.3 L MCV 90.0 MCH 26.6 MCHC 29.6 L RDW 19.0 H Plt Count 166 MPV 11.7 H Immature Gran % (Auto) 0.9 H Neut % (Auto) 61.3 Lymph % (Auto) 28.5 [place] % (Auto) 7.5 Eos % (Auto) 1.4 Baso % (Auto) 0.4 Lymph # (Auto) 1.59 [place] # (Auto) 0.4 Eos # (Auto) 0.1 Baso # (Auto) 0.0 Abs Immat Gran (auto) 0.05 H Absolute Neuts (auto) 3.4 Absolute Nucleated RBC 0.000 Band Neutrophils % 0 Nucleated RBC % 0.0 Platelet Estimate Adequate Hypochromasia 1+ Anisocytosis 1+ Schistocytes None seen OB - PN A/P Plan day: 1 Comments: Post Op LTCS - no problems, routine recovery Time Spent With Patient Time: Total time spent is greater than 50% in coordination of care (as documented) at patient's floor/unit and/or counseling patient: Exam 2 Const: General: cooperative, healthy appearing, comfortable and no acute distress Resp: Auscultation: no crackles, no rales, no rhonchi and no wheezes Cardio: Rhythm: regular rhythm Heart sounds: no click and no murmurs GI: Inspection: non-distended Auscultation: normal bowel sounds Extrem: General: normal to inspection, no pedal edema and no calf tenderness
[2024-07-08] MEDS: MULTIVIT/MIN/PREN/FOL AC/IRON TABLET 1 TAB PO (09:08)
[2024-07-08] MEDS: SIMETHICONE 80 MG TAB.CHEW PO ×2 (09:08→17:17)
[2024-07-08] MEDS: DOCUSATE SODIUM 100 MG CAPSULE PO ×2 (09:08→17:17)
[2024-07-08] MEDS: POLYSACCHARIDE IRON COMPLEX 150 MG CAPSULE PO ×2 (09:08→17:17)
--- NOTE | 2024-07-08 09:20 | PC.NURSE ---
This RN spoke with patient who was told by Dr. Ferrari she could leave on a pass to see her twins, but would need blood upon returning. This RN informed patient that she would contact Dr. Ferrari to get orders. This RN called Dr. Ferrari at 0924 and asked for order clarification on patient regarding leaving on the pass and needing blood. explained that he gave the patient the option to receive blood but also gave her the option to leave on the pass, then stated 6.9 is low damn and then asked do you have helmets there? Just put her in a helmet and she'll be fine , this RN stated that we do not have helmets and informed MD that patient was dressed and wanting to leave but that I needed order clarification. stated She can go but if she falls and cracks her head its on you, okay bye and the proceeded to hang up the phone. This RN was not comfortable with the lack of clarification and consulted the ice cream machine operator for further assistance. ice cream machine operator called physician and asked for clarification, MD then ordered a repeat CBC to verify results. ice cream machine operator purnima patients blood. When results came back of 7.8, this RN notified Dr. Ferrari of results who stated Do you feel better about it now? , this RN stated that she did feel better about the results and asked MD if patient was okay to leave on the pass and stated I was and am okay with it .
[2024-07-08 10:03] LABS: Basophils Percent Auto 0.2 % (0.2-1.2); Eosinophils Absolute Auto 0.1 K/mm3 (0-0.3); Eosinophils Percent Auto 0.9 % (0-4.4); Hematocrit 24.8 % (37.0-47.0); Hemoglobin 7.8 g/dL (12.0-15.0); Immature Granulocyte Absolute 0.04 K/mm3 (0.00-0.031); Immature Granulocyte Percent A 0.7 % (0-0.5); Lymphocytes Absolute Auto 1.02 K/mm3 (0.9-3.2); Lymphocytes Percent Auto 17.9 % (18.3-44.2); Mean Corpuscular HGB Conc 31.5 g/dl (32-36); Mean Corpuscular Hemoglobin 28.3 pg (26-34); Mean Corpuscular Volume 89.9 fl (80-100); Mean Platelet Volume 11.1 fl (7.4-10.4); Monocytes Absolute Auto 0.3 K/mm3 (0.1-0.6); Monocytes Percent Auto 5.4 % (2.6-8.5); Neutrophils Absolute Auto 4.3 K/mm3 (1.3-6.7); Neutrophils Percent Auto 74.9 % (45.5-73.1); Platelet Count Result 213 k/mm3 (150-375); Red Blood Count 2.76 M/mm3 (4.2-5.4); Red Cell Distribution Width 19.5 % (11.5-14.5); White Blood Count 5.7 K/mm3 (4.5-10.0)
[2024-07-08] MEDS: HYDROcodone/acetaminophen (*CRX) 10-325 MG TABLET 1 TAB PO (10:30)
--- NOTE | 2024-07-08 10:45 | PC.NURSE ---
Patient left on pass to NICU at 1045.
--- NOTE | 2024-07-08 17:10 | PC.NURSE ---
Patient back from visit at the NICU.
[2024-07-08] MEDS: IBUPROFEN 600 MG TABLET PO ×2 (17:17→23:31)
[2024-07-08 17:30] VITALS: BP 123/91; PULSE 100; RESP 20; TEMP 36.8; O2SAT 100
[2024-07-08 19:33] VITALS: BP 143/84; PULSE 103; RESP 16; TEMP 37.1; O2SAT 100
[2024-07-08] MEDS: LIDOCAINE 5% PATCH 1 PATCH TRANSDERM (20:45)
[2024-07-08 23:35] VITALS: BP 133/77; PULSE 95; RESP 16; TEMP 36.7; O2SAT 100
--- NOTE | 2024-07-09 03:03 | PC.NURSE ---
Daylight Savings Time For Daylight Savings Time Beginning in the Spring - Clocks are moved ahead. For [facility], the time of change occurs at 0200 hrs. Time is taken from the jack spooler tender. This entry on the patient's chart recognizes the change in time reflected during documentation. Example: 2 entries for vital signs may be charted for 0200 hrs.
[2024-07-09] MEDS: SIMETHICONE 80 MG TAB.CHEW PO (07:08)
[2024-07-09] MEDS: POLYSACCHARIDE IRON COMPLEX 150 MG CAPSULE PO (07:08)
[2024-07-09] MEDS: ACETAMINOPHEN 325 MG TABLET 650 MG PO (07:08)
[2024-07-09] MEDS: IBUPROFEN 600 MG TABLET PO (07:08)
[2024-07-09] MEDS: MULTIVIT/MIN/PREN/FOL AC/IRON TABLET 1 TAB PO (07:08)
[2024-07-09] MEDS: DOCUSATE SODIUM 100 MG CAPSULE PO (07:08)
[2024-07-09 07:15] VITALS: BP 134/92; PULSE 81; RESP 18; TEMP 36.8; O2SAT 100
--- NOTE | 2024-07-09 09:30 | PM.OBPNVD ---
OB - PN: Subj Subjective Date/time seen: 07/09/24 09:30 Patient comments: no complaints, pain well controlled, incisional pain, tolerating diet and flatus present OB - PN: Obj Data Labs 07/08/24 09:59 Labs: Laboratory Results - last 24 hr 07/08/24 09:59 WBC 5.7 RBC 2.76 L Hgb 7.8 L Hct 24.8 L MCV 89.9 MCH 28.3 D MCHC 31.5 L RDW 19.5 H Plt Count 213 MPV 11.1 H Immature Gran % (Auto) 0.7 H Neut % (Auto) 74.9 H Lymph % (Auto) 17.9 L [place] % (Auto) 5.4 Eos % (Auto) 0.9 Baso % (Auto) 0.2 Lymph # (Auto) 1.02 [place] # (Auto) 0.3 Eos # (Auto) 0.1 Baso # (Auto) 0.0 Abs Immat Gran (auto) 0.04 H Absolute Neuts (auto) 4.3 Absolute Nucleated RBC 0.000 Nucleated RBC % 0.0 OB - PN A/P Plan day: 2 Plan: routine care Comments: POD#2 LTCS - no problems, Time Spent With Patient Time: Total time spent is greater than 50% in coordination of care (as documented) at patient's floor/unit and/or counseling patient: Exam Const: General: comfortable, no acute distress and alert Resp: Effort & Inspection: normal respiratory effort Auscultation: no crackles, no rales and no rhonchi Cardio: Rate: regular rate Heart sounds: no click, no murmurs and no rubs GI: Inspection: non-distended Auscultation: normal bowel sounds Other: Incision - CDI Extrem: General: normal to inspection, no pedal edema and no calf tenderness
--- NOTE | 2024-07-09 09:31 | P.DS_ITS ---
DS: Admitting Diagnosis Discharge Date 07/09/24 Admitting Diagnosis twin gestation DS: Discharge Diagnosis Discharge Diagnosis (1) Twin delivery by : Code(s): O30.009 - Twin , unspecified number of placenta and unspecified number of amniotic sacs, unspecified trimester Status: Acute OB - DS: Summary OB Procedures : None OB Procedures Intrapartum: OB Procedures: : None Peripartum Data Procedures: Procedures Operation Date: 07/07/24 07:30 Actual Procedure Side Surgeon p Section Not Applicable Bill Grajeda MD Time Spent with Patient Time attestation: Total time spent providing and/or coordinating discharge services: DS: Data Data Completed and Pending Labs on day of discharge: Labs from last 24 hours 07/08/24 09:59 WBC 5.7 RBC 2.76 L Hgb 7.8 L Hct 24.8 L MCV 89.9 MCH 28.3 D MCHC 31.5 L RDW 19.5 H Plt Count 213 MPV 11.1 H Immature Gran % (Auto) 0.7 H Neut % (Auto) 74.9 H Lymph % (Auto) 17.9 L [place] % (Auto) 5.4 Eos % (Auto) 0.9 Baso % (Auto) 0.2 Lymph # (Auto) 1.02 [place] # (Auto) 0.3 Eos # (Auto) 0.1 Baso # (Auto) 0.0 Abs Immat Gran (auto) 0.04 H Absolute Neuts (auto) 4.3 Absolute Nucleated RBC 0.000 Nucleated RBC % 0.0 Discharge Plan Discharge Discharging Clinician: Sachin Ferrari Patient Disposition: Home, Self-Care Activity: pelvic rest Diet: regular Discharge Instructions: Pumping Plan? You are exclusively pumping at discharge. It is important to pump regularly and consistently to help initiate your milk supply. Regular milk removal is necessary for continued milk production. You need to pump at least 8 times every 24 hours. You can use hands on pumping to get better results with pumping and to encourage your breasts to produce more milk. Hands on pumping instructions:? * Massage your breasts before applying the breast pump.? * Pump both breasts at once. Use your hands to massage and compress while you pump.? * Stop pumping when the milk stops flowing? * Massage your breasts again? * End the pumping session by pumping or hand expressing one breast at a time while massaging and compressing your breast. Go back and forth between each breast until the milk stops flowing.? * Allow 25 minutes to complete this routine??? It is important to be sure you have a well-fitted pump flange. Consult your pump manual for recommended flange sizing or consult a professional.?? YOU SHOULD SET YOUR PUMP TO THE HIGHEST COMFORTABLE LEVEL. INCREASE THE SUCTION GRADUALLY UNTIL YOU REACH THE CORRECT SETTING. PUMPING SHOULD NOT HURT.? ? CONSULT YOUR PUMP MANUAL FOR GUIDANCE ON PUMP SETTINGS AND FUNTIONS. MOST PUMPS RECOMMEND 1-2 MINUTES OF THE QUICK ?MASSAGE? MODE, THEN SWITCHING TO THE SLOWER ?EXPRESSION? MODE FOR THE REMAINDER OF THE PUMPING SESSION.?Pump each breast for 10-15 minutes. Pumping will help stimulate your breasts to produce milk.? Follow the collection and storage sheet given to you in the Mom and Baby Guide. Remember to keep track of all feedings/elimination on the blue worksheet provided.? ? Clean your pump parts between each pumping session according to the guidelines in your pump manual. It is recommended that you use a basin that is reserved for washing pump parts that is separate from your sink to prevent contamination. If you are pumping for an ill or infant, you should disinfect your pump parts once a day by boiling them in hot water for 5 minutes after cleaning.? ? Ways to increase your milk supply:? * Increase frequency of pumping (10-12 times every 24 hours)? * Lots of skin to skin (if infant is able), especially before pumping? * Use warm washcloths before pumping and gentle breast massage before and during pumping? * Reduce stress, relax with music, get plenty of rest, and drink to thirst? * Warm pump flanges with warm water before pumping? * Pump until the milk stops flowing, then pump for 2 more minutes to fully empty the breast? * Pump at least once through the night, milk shouldn?t remain in the breast for longer than 4 hours? * Power pumping: Pump for 15-20 minutes, rest for 10 minutes, pump for 10, rest for 10, pump for 10. Do this routine 1-2 times a day for several days or until you notice an increase in milk supply. Pump normally between power pumping sessions.? ? You may contact the Team at [phone] for questions and appointments.? These discharge instructions have been explained to me and I have received a copy.? Patient Instructions: Antibiotic Form Patient Language: Estonian Stand Alone Forms: General Discharge Information Follow-up/Referrals: Sachin Ferrari MD [Physician] - Discharge Medications: New hydrocodone-acetaminophen 5-325 mg tablet 1 tablet PO Q4H PRN (Reason: pain) Qty: 25 0RF Continued -xwdv fum-folic ac-om3 [id number] mg-mcg-mg Combo Pack 1 pkg PO DAILY pseudoephedrine-guaifenesin [Mucinex D] 60-600 mg Tablet Extended Release 12 Hr 1 tablet PO BID calcium carbonate 500 mg calcium (1,250 mg) Tablet,Chewable 1,250 mg PO BID PRN (Reason: Acid Reflux) Date of admission: 07/07/24 05:20 Primary Care Provider: Carl,Zachariah Abreu Admitting Provider: Bill Grajeda Attending physician on admission: Bill Grajeda Condition: Stable
[2024-07-09] MEDS: HYDROcodone/acetaminophen (*CRX) 5-325 MG TABLET 1 TAB PO (10:41)
[2024-07-11 08:03] VITALS: BP 141/88; PULSE 100; RESP 18; TEMP 36.6; O2SAT 100
== END 2024-07-09 10:45 | disposition home or self-care (01) | DRG 788 ==
LOC: ANHOB2 07-09 09:32 → ANHLDR 07-11 09:27 → ANHOB2 07-11 09:27
PROVIDERS: Admitting Provider Obstetrics & Gynecology; PCP Internal Medicine; Visit Provider Obstetrics & Gynecology
PROC: 10D00Z1 Extraction of Products of Conception, Low, Open Approach (ICD-10-PCS; CPT 59514; principal; 2024-07-07 07:30)
DX: O30.043 Twin pregnancy, dichorionic/diamniotic, third trimester (principal); O32.9XX2 Maternal care for malpresentation of fetus, unspecified, fetus 2; Z3A.38 38 weeks gestation of pregnancy; Z37.2 Twins, both liveborn
CPT/HCPCS: 36415; 85025; 85027; 85461; 86593; 86703; 86850; 86900; 86901; A9270; G0432; J0690; J1885; J2210; J2274; J2405; J7120